=== PATIENT | female | born 1990 | race American Indian/Alaskan Native ===

== ENCOUNTER 2017-01-26 14:55 | Emergency (ER) | payer OTHER ==
[2017-01-26 15:04] VITALS: BP 137/91
--- NOTE | 2017-01-26 16:08 | Emergency Department Report ---
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 Patient denies swelling of throat or tongue, also denies shortness of breath wheezing cough or nausea vomiting. Patient states this never happened before. Patient has no known allergies. Patient states symptoms resolved spontaneously without any treatment. ED Past Medical Hx - Past Medical History Previous Medical History?: No - Surgical History Additional Surgical History: - Social History Smoking Status: Never Smoker Substance Use Type: Alcohol - Medications Home Medications: Home Medications Medication Instructions Recorded Confirmed Last Taken Type EPINEPHrine [Epipen 2-Tamir] 0.3 mg IJ ONCE #2 auto.injct 01/26/17 Unknown Rx Prednisone [predniSONE 10 mg 10 mg PO .TAPER #1 tab.ds.pk 01/26/17 Unknown Rx (6-Day Pack, 21 Tabs)] diphenhydrAMINE [Benadryl CAP] 25 mg PO QHS PRN #20 capsule 01/26/17 Unknown Rx ED Review of Systems ROS: Stated complaint: POSS ALLERGIC REACTION Other details as noted in HPI Constitutional: denies: chills, fever Eyes: denies: eye pain, eye discharge, vision change ENT: denies: ear pain, throat pain Respiratory: denies: cough, shortness of breath, wheezing Cardiovascular: denies: chest pain, palpitations Gastrointestinal: denies: abdominal pain, nausea, vomiting, diarrhea Skin: rash (resolved now) Neurological: denies: headache, weakness, paresthesias Physical Exam - Physical Exam Vital Signs: Vital Signs 01/26/17 14:59 Temperature 97.6 F Pulse Rate 100 H Respiratory 15 Rate Blood Pressure 137/91 O2 Sat by Pulse 100 Oximetry General: Patient's awake alert and oriented eyes are clear extraocular movements intact PERRLA, oropharynx is clear moist oral mucosa, no tracheal deviation, bilateral breath sounds clear to auscultation, no angioedema noted, skin is clear with no urticaria noted. Patient abdomen soft nontender. She's vital signs are stable. Heart rate normal. Reviewed pictures the patient taken of her self appeared to have generalized urticarial reaction mild periorbital swelling. The symptoms completely resolved on physical exam. Patient advised that she is in a be discharged with prednisone and Benadryl and EpiPen pack to carry with her in case this occurs again she begins having signs of anaphylaxis. I discussed with patient with signs of anaphylaxis look like him to self administer EpiPen steroids Benadryl and immediately dialed 911 ED Course Vital Signs 01/26/17 14:59 Temperature 97.6 F Pulse Rate 100 H Respiratory 15 Rate Blood Pressure 137/91 O2 Sat by Pulse 100 Oximetry Critical care attestation.: If time is entered above; I have spent that time in minutes in the direct care of this critically ill patient, excluding procedure time. ED Disposition Clinical Impression: Allergic reaction Disposition: DISCHARGED TO HOME OR SELFCARE Is pt being admited?: No Condition: Stable Instructions: Urticaria (ED), Allergies (ED) Prescriptions: diphenhydrAMINE [Benadryl CAP] 25 mg PO QHS PRN #20 capsule PRN Reason: Allergy Symptoms EPINEPHrine [Epipen 2-Tamir] 0.3 mg IJ ONCE #2 auto.injct Prednisone [predniSONE 10 mg (6-Day Pack, 21 Tabs)] 10 mg PO .TAPER #1 tab.ds.pk Forms: Work/School Release Form(ED)
== END 2017-01-26 16:50 | disposition home or self-care (01) ==
LOC: ED 14:55
DX: T78.40XA Allergy, unspecified, initial encounter (principal); X58.XXXA Exposure to other specified factors, initial encounter
CPT/HCPCS: 99282

== ENCOUNTER 2018-10-26 15:27 | Emergency (ER) | payer OTHER ==
[2018-10-26 15:35] VITALS: BP 118/79
--- NOTE | 2018-10-26 15:37 | Emergency Department Report ---
Blank Doc - Documentation Documentation: This is a 28-year-old female that presents with generalized bodyaches x1 week. Patient seen PCP and urgent care which was given pain meds. Denies feeling any better. Denies any URI symptoms. Denies any other symptoms. This initial assessment diagnostic orders/clinical plan/treatment(s) is/are subject to change based on patient's health status, clinical progression and re- assessment by fellow clinical providers in the ED. Further treatment and workup at subsequent clinical providers discretion. Patient/guardians urged not to elope from ED s their condition may be serious if not clinically assessed and managed. Initial orders include: 1-Patient sent to [facility] for further evaluation and treatment 2-UA 3- Labs
[2018-10-26 16:39] LABS: Basophils % (Auto) 0.3 % (0.0-1.8); Eosinophils # (Auto) 0.3 K/mm3 (0.0-0.4); Eosinophils % (Auto) 6.9 % (0.0-4.3); Hematocrit 37.6 % (30.3-42.9); Hemoglobin 12.4 gm/dl (10.1-14.3); Lymphocytes # (Auto) 1.1 K/mm3 (1.2-5.4); Lymphocytes % (Auto) 27.6 % (13.4-35.0); Mean Corpuscular HGB Conc 33 % (30-34); Mean Corpuscular Volume 93 fl (79-97); Monocytes # (Auto) 0.3 K/mm3 (0.0-0.8); Monocytes % (Auto) 7.4 % (0.0-7.3); Platelet Count 302 K/mm3 (140-440); Red Blood Count 4.04 M/mm3 (3.65-5.03); Red Cell Distribution Width 13.9 % (13.2-15.2)
--- NOTE | 2018-10-26 16:40 | Emergency Department Report ---
<BREEZY SCOTT - Last Filed: 10/26/18 16:39> ED General Adult HPI - General Chief complaint: Pain General Stated complaint: BODY PAIN Time Seen by Provider: 10/26/18 15:30 Source: patient Mode of arrival: Ambulatory Limitations: No Limitations - History of Present Illness Initial comments: Patient is a 28-year-old Georgian female is complaining of diffuse body aches. Patient states the pains are mostly in her biceps and quads. Patient states this pain has been present for approximately 2 weeks and is worse with movement. Pain is 6 out of 10 in severity and aching in nature. Patient states she does do heavy lifting at work and is also sometimes in a hot environment. Patient denies any direct trauma or falls. Severity scale (0 -10): 8 - Related Data Previous Rx's Medication Instructions Recorded Last Taken Type EPINEPHrine [Epipen 2-Tamir] 0.3 mg IJ ONCE #2 auto.injct 01/26/17 Unknown Rx Prednisone [predniSONE 10 mg 10 mg PO .TAPER #1 tab.ds.pk 01/26/17 Unknown Rx (6-Day Pack, 21 Tabs)] diphenhydrAMINE [Benadryl CAP] 25 mg PO QHS PRN #20 capsule 01/26/17 Unknown Rx traMADol [Ultram 50 MG tab] 50 mg PO Q6HR PRN #12 tablet 10/26/18 Unknown Rx Allergies Allergy/AdvReac Type Severity Reaction Status Date / Time No Known Allergies Allergy Unverified 01/26/17 15:04 ED Review of Systems Comment: All other systems reviewed and negative ED Past Medical Hx - Past Medical History Previous Medical History?: No - Surgical History Past Surgical History?: Yes Additional Surgical History: - Social History Smoking Status: Never Smoker Substance Use Type: None - Medications Home Medications: Home Medications Medication Instructions Recorded Confirmed Last Taken Type EPINEPHrine [Epipen 2-Tamir] 0.3 mg IJ ONCE #2 auto.injct 01/26/17 Unknown Rx Prednisone [predniSONE 10 mg 10 mg PO .TAPER #1 tab.ds.pk 01/26/17 Unknown Rx (6-Day Pack, 21 Tabs)] diphenhydrAMINE [Benadryl CAP] 25 mg PO QHS PRN #20 capsule 01/26/17 Unknown Rx traMADol [Ultram 50 MG tab] 50 mg PO Q6HR PRN #12 tablet 10/26/18 Unknown Rx ED Physical Exam - General Limitations: No Limitations General appearance: alert, in no apparent distress - Head Head exam: Present: atraumatic, normocephalic - Eye Eye exam: Present: normal appearance - ENT ENT exam: Present: mucous membranes moist - Neck Neck exam: Present: normal inspection - Respiratory Respiratory exam: Present: normal lung sounds bilaterally. Absent: respiratory distress, wheezes, rales, rhonchi - Cardiovascular Cardiovascular Exam: Present: normal rhythm, tachycardia. Absent: systolic murmur, diastolic murmur, rubs, gallop - GI/Abdominal GI/Abdominal exam: Present: soft, normal bowel sounds. Absent: distended, tenderness, guarding, rebound - Extremities Exam Extremities exam: Present: normal inspection - Back Exam Back exam: Present: normal inspection - Neurological Exam Neurological exam: Present: alert, oriented X3 - Psychiatric Psychiatric exam: Present: normal affect, normal mood - Skin Skin exam: Present: warm, dry, intact, normal color. Absent: rash ED Medical Decision Making - Lab Data Result diagrams: 10/26/18 15:55 ED Disposition Clinical Impression: Generalized body aches Disposition: DC-01 TO HOME OR SELFCARE Condition: Stable Instructions: Musculoskeletal Pain (ED) Additional Instructions: Please follow-up with your primary care physician in 2-3 days. Have them refer you to her under cutting machine operator further testing Take Ultram for pain but these do not drive or operate heavy machinery while taking this medication as it causes drowsiness Referrals: [facility] [Outside] - 2-3 Days Your, primary care physician [Other] - 2-3 Days Forms: Work/School Release Form(ED) <ALISON GARVIN - Last Filed: 10/26/18 17:57> ED General Adult HPI - History of Present Illness Complaint: generalized body ache Onset/Timin -: week(s) Location: left, right (generalized body ache) Radiation: non-radiation Quality: aching Consistency: constant Improves with: none Worsens with: movement Associated Symptoms: other. denies: confusion, chest pain, cough, diaphoresis, fever/chills, headaches, loss of appetite, malaise, nausea/vomiting, rash, seizure, shortness of breath, syncope, weakness Treatments Prior to Arrival: other ([id number] pain medication) ED Review of Systems ROS: Stated complaint: BODY PAIN Other details as noted in HPI Constitutional: denies: chills, fever ENT: denies: ear pain, throat pain, congestion Respiratory: denies: cough, shortness of breath, wheezing Cardiovascular: denies: chest pain, palpitations, dyspnea on exertion, edema, syncope Gastrointestinal: denies: abdominal pain, nausea, vomiting Genitourinary: denies: dysuria, hematuria, abnormal menses Musculoskeletal: arthralgia, myalgia. denies: back pain, joint swelling Skin: denies: rash Neurological: denies: headache, numbness, paresthesias, confusion, abnormal gait, vertigo Psychiatric: denies: anxiety ED Physical Exam - Eye Eye exam: Present: PERRL - ENT ENT exam: Present: normal exam, normal orophraynx - Neck Neck exam: Present: full ROM, other (no C-spine tenderness). Absent: tenderness - Respiratory Respiratory exam: Absent: chest wall tenderness - Extremities Exam Extremities exam: Present: full ROM, normal capillary refill, other (No cce. + 2 pulses in all extremities, no neurovascular compromise). Absent: tenderness, pedal edema, joint swelling, calf tenderness - Back Exam Back exam: Present: full ROM, other (ambulates without any difficulties). Absent: tenderness, muscle spasm, paraspinal tenderness, vertebral tenderness, rash noted - Neurological Exam Neurological exam: Present: normal gait ED Course Vital Signs 10/26/18 15:33 Temperature 98.8 F Pulse Rate 116 H Respiratory 16 Rate Blood Pressure 118/79 O2 Sat by Pulse 98 Oximetry - Reevaluation(s) Reevaluation #1: 10/26/18 17:50 This is a 28-year-old female here reports 2 weeks of generalized body ache. She remained stable throughout ED course. ED Medical Decision Making - Lab Data Result diagrams: 10/26/18 15:55 10/26/18 15:55 Lab Results 10/26/18 10/26/18 10/26/18 Range/Units 15:52 15:55 15:55 WBC 4.1 L (4.5-11.0) K/mm3 RBC 4.04 (3.65-5.03) M/mm3 Hgb 12.4 (10.1-14.3) gm/dl Hct 37.6 (30.3-42.9) % MCV 93 (79-97) fl MCH 31 (28-32) pg MCHC 33 (30-34) % RDW 13.9 (13.2-15.2) % Plt Count 302 (140-440) K/mm3 Lymph % (Auto) 27.6 (13.4-35.0) % [place] % (Auto) 7.4 H (0.0-7.3) % Eos % (Auto) 6.9 H (0.0-4.3) % Baso % (Auto) 0.3 (0.0-1.8) % Lymph # 1.1 L (1.2-5.4) K/mm3 Schley # 0.3 (0.0-0.8) K/mm3 Eos # 0.3 (0.0-0.4) K/mm3 Baso # 0.0 (0.0-0.1) K/mm3 Seg Neutrophils % 57.8 (40.0-70.0) % Seg Neutrophils # 2.4 (1.8-7.7) K/mm3 Sodium 138 (137-145) mmol/L Potassium 4.0 (3.6-5.0) mmol/L Chloride 100.5 (98-107) mmol/L Carbon Dioxide 30 (22-30) mmol/L Anion Gap 12 mmol/L BUN 11 (7-17) mg/dL Creatinine 0.5 L (0.7-1.2) mg/dL Estimated GFR > 60 ml/min BUN/Creatinine Ratio 22 % Glucose 74 (65-100) mg/dL Calcium 8.5 (8.4-10.2) mg/dL Total Creatine Kinase 58 (30-135) units/L Urine Color Yellow (Yellow) Urine Turbidity Clear (Clear) Urine pH 7.0 (5.0-7.0) Ur Specific [place] 1.018 (1.003-1.030) Urine Protein <15 mg/dl (Negative) mg/dL Urine Glucose (UA) Neg (Negative) mg/dL Urine Ketones Neg (Negative) mg/dL Urine Blood Neg (Negative) Urine Nitrite Neg (Negative) Ur Reducing Substances Not Reportable Urine Bilirubin Neg (Negative) Urine Ictotest Not Reportable Urine Urobilinogen < 2.0 (<2.0) mg/dL Ur Leukocyte Esterase Neg (Negative) Urine WBC (Auto) 1.0 (0.0-6.0) /HPF Urine RBC (Auto) 1.0 (0.0-6.0) /HPF U Epithel Cells (Auto) 1.0 (0-13.0) /HPF Urine Mucus Few /HPF Urine HCG, Qual Negative (Negative) - Medical Decision Making This is a 28-year-old female here for generalized body ache 2 weeks. She works in the post [employer]. She had CBC, BMP and urinalysis along with test done. Lab results within normal level and test normal. Her CK is within normal limits. I discussed with patient her findings and told her that she is to follow up with her under cutting machine operator that she is having aching in her joints and she voiced understanding. She does have a primary care physician. I discussed with her she needs to follow up with primary care physician in 2-3 days and he can refer her to under cutting machine operator and she voiced understanding. Patient discharged home in stable condition with prescription for Ultram and to increase her fluid intake. Her vital signs are stable and she is afebrile and in no acute distress Critical care attestation.: If time is entered above; I have spent that time in minutes in the direct care of this critically ill patient, excluding procedure time. ED Disposition Is pt being admited?: No Does the pt Need Aspirin: No
[2018-10-26 17:20] LABS: BUN/Creatinine Ratio 22; Blood Urea Nitrogen 11 mg/dL (7-17); Calcium 8.5 mg/dL (8.4-10.2); Hemolysis Index 6
[2018-10-26 17:26] LABS: HCG Qualitative,Urine Negative (Negative)
[2018-10-26 17:28] LABS: Bilirubin,Urine NEG (Negative); Color,Urine Yellow (Yellow)
[2018-10-26 17:29] LABS: Blood,Urine NEG (Negative); Mucus,Urine FEW /HPF; Protein,Urine <15 mg/dL mg/dL (Negative); Urobilinogen,Urine < 2.0 mg/dL (<2.0)
== END 2018-10-26 18:05 | disposition home or self-care (01) ==
LOC: ED 15:27
DX: M79.10 Myalgia, unspecified site (principal)
CPT/HCPCS: 36415; 80048; 81001; 81025; 82550; 85025; 99283

== ENCOUNTER 2018-11-13 12:39 | Outpatient (CLI) | payer OTHER ==
--- NOTE | 2018-11-13 14:35 | Ultrasound Report ---
Bilateral axillary ultrasound: Bilaterally enlarged lymph nodes palpated by her physician. Imaging of both axillary regions demonstrated approximately 6 lymph nodes in each axilla. The smallest nodes were approximately one centimeters in size. The 2 largest lymph nodes on the right measure 2.5 cm. On the left the 2 largest measure 2.8 and 2.3 cm respectively. All of the enlarged lymph nodes appear to be abnormal with markedly thickened cortices but no focal mass and no significant lobulation. Impression: Nonspecific adenopathy.
== END 2018-11-13 12:40 | disposition home or self-care (01) ==
LOC: US 12:39
PROVIDERS: ATTEND Surgery
DX: I88.8 Other nonspecific lymphadenitis (principal)

== ENCOUNTER 2018-11-27 07:28 | Inpatient (IN) | payer OTHER ==
[2018-11-27] MEDS ORDERED: ANCEF/STERILE WATER 2 GM/20 ML 2 GM/20 ML SYRINGE IV NR (08:00)
--- NOTE | 2018-11-27 08:33 | Anesthesia Consultation ---
Anesthesia Consult and Med Hx Date of service: 11/27/18 - Airway Anesthetic Teeth Evaluation: Good ROM Head & Neck: Adequate Mental/Hyoid Distance: Adequate Mallampati Class: Class II Intubation Access Assessment: Probably Good - Pulmonary Exam CTA: Yes - Cardiac Exam Cardiac Exam: RRR - Pre-Operative Health Status ASA Pre-Surgery Classification: ASA3 Proposed Anesthetic Plan: General - Pulmonary Hx Smoking: No Hx Asthma: No Hx Respiratory Symptoms: No - Cardiovascular System Hx Hypertension: No Hx Heart Attack/AMI: No Hx Percutaneous Transluminal Coronary Angioplasty (PTCA): No Hx Cardia Arrhythmia: No - Central Nervous System Hx Seizures: No CVA: No Hx Back Pain: Yes Hx Psychiatric Problems: No - Gastrointestinal Hx Gastroesophageal Reflux Disease: No - Endocrine Hx Renal Disease: No Hx Liver Disease: No Hx Insulin Dependent Diabetes: No Hx Non-Insulin Dependent Diabetes: No Hx Thyroid Disease: No - Other Systems Hx Obesity: No - Additional Comments Anesthesia Medical History Comments: Hx recent diagnosis of SLE on prednisone 20mg qAM. Per patient, no renal, lung, or vascular involvement. Will give usual morning dose in POHA. Will consider stress dose steroids pending extent of planned procedure.
[2018-11-27] MEDS ORDERED: DILAUDID IV PRN ×2 (08:34→11:08)
--- NOTE | 2018-11-27 08:34 | Anesthesia Day of Surgery ---
Anesthesia Day of Surgery - Day of Surgery Patient Examined: Yes Patient H&P Reviewed: Yes Patient is NPO: Yes
[2018-11-27] MEDS ORDERED: LACTATED RINGERS 1,000 ML IV SCH (09:00)
[2018-11-27] MEDS ORDERED: VERSED IV NR (09:00)
[2018-11-27] MEDS ORDERED: DELTASONE PO NR (09:00)
[2018-11-27] MEDS ORDERED: PERCOCET 5/325 PO PRN (11:09)
[2018-11-27] MEDS ORDERED: TYLENOL PO PRN (11:15)
[2018-11-27] MEDS ORDERED: VANCOMYCIN PHARMACY TO DOSE IV SCH (12:00)
[2018-11-27] MEDS: NACL 0.9% 1000 ML 1,000 ML IV SCH (12:59)
[2018-11-27] MEDS ORDERED: VANCOMYCIN/NS 1 GM/250 ML 1 GM/250 ML BAG IV ONE (13:00)
--- NOTE | 2018-11-27 13:08 | Event Note ---
Date: 11/27/18 Pt presented for elective excisional lymph node biopsy due to nonspecific lymphadenopathy. The patient was febrile to 102 and tachycardic upon assessment by preop nurse. Per family patient has been increasingly sleepy, febrile over the last one week and not eating or drinking well. This is a change since her preop visit with me in my office. She is not on any antibiotics. They do not know why she is not feeling well. Due to the above circumstances, case will be cancelled for today and patient will be admitted to hospitalist service for further evaluation and w/u of fever. Discussed with Dr. Rdz. I spoke with Dr. Armijo (patient's supervisor insulation) to alert him of the change in plan and he will be available to see the patient.
[2018-11-27] MEDS: ZOSYN/NS 4.5GM/100ML 4.5 GM/100 ML VIAL IV SCH ×2 (13:09→23:00)
[2018-11-27 13:30] LABS: Erythrocyte Sedimentation Rate 34 mm/Hr (0-20)
[2018-11-27 13:38] LABS: Hematocrit 33.9 % (30.3-42.9); Hemoglobin 11.4 gm/dl (10.1-14.3); Mean Corpuscular Volume 92 fl (79-97); Red Blood Count 3.69 M/mm3 (3.65-5.03)
[2018-11-27 13:39] LABS: Mean Corpuscular HGB Conc 34 % (30-34); Platelet Count 320 K/mm3 (140-440); Red Cell Distribution Width 15.3 % (13.2-15.2)
[2018-11-27 13:48] LABS: Alanine Aminotransferase 59 units/L (7-56); Albumin 2.3 g/dL (3.9-5); BUN/Creatinine Ratio 28; Blood Urea Nitrogen 17 mg/dL (7-17); Calcium 7.9 mg/dL (8.4-10.2); Hemolysis Index 8
[2018-11-27 15:43] LABS: Band Neutrophils # (Manual) 0.6 K/mm3; Basophils % (Manual) 0 % (0.0-1.8); Eosinophils % (Manual) 0 % (0.0-4.3); Total Cells Counted 100
[2018-11-27 15:44] LABS: Ovalocytes Few; Platelet Estimate Consistent w Auto; Poikilocytosis Few
--- NOTE | 2018-11-27 16:43 | XRay Report ---
PROCEDURE: XR CHEST ROUTINE 2V TECHNIQUE: PA and lateral views of the chest. HISTORY: FEVER COMPARISONS: None FINDINGS: Lines, tubes, and devices: N/A Lungs and pleura: Trachea is normal in position. Lungs are clear of infiltrate, pleural effusion, vas cular congestion, or pneumothorax. Cardiomediastinal silhouette: Cardiac and mediastinal silhouettes are unremarkable. Other: Bony structures are intact. IMPRESSION: No acute cardiopulmonary process seen. . This document is electronically signed by Anjelica Feng MD., November 27 2018 04:41:08 PM ET
--- NOTE | 2018-11-27 18:00 | History and Physical Report ---
History of Present Illness Date of examination: 11/27/18 Date of admission: 11/27/18 10:35 Medications and Allergies Allergies Allergy/AdvReac Type Severity Reaction Status Date / Time meloxicam AdvReac 'POSSIBLE'- Verified 11/21/18 10:45 HANDS SWELLING Home Medications Medication Instructions Recorded Confirmed Last Taken Type Ibuprofen 600 mg PO Q6H PRN 11/21/18 11/27/18 11/26/18 15:00 History predniSONE [Deltasone] 20 mg PO DAILY 11/21/18 11/27/18 11/26/18 15:00 History Active Meds: Active Medications Acetaminophen (Tylenol) 650 mg PO Q4H PRN PRN Reason: Fever >101 Last Admin: 11/27/18 12:46 Dose: 650 mg Documented by: Hydromorphone HCl (Dilaudid) 0.5 mg IV Q10MIN PRN PRN Reason: Pain , Severe (7-10) Stop: 11/27/18 20:00 Hydromorphone HCl (Dilaudid) 0.5 mg IV Q3H PRN PRN Reason: Pain , Severe (7-10) Lactated Ringer's (Lactated Ringers) 1,000 mls @ 100 mls/hr IV DIRECT ANIYAH Sodium Chloride (Nacl 0.9% 1000 Ml) 1,000 mls @ 0 mls/hr IV ONCE ANIYAH Stop: 11/28/18 12:01 Last Admin: 11/27/18 12:59 Dose: 100 mls/hr Documented by: Piperacillin Sod/Tazobactam Sod (Zosyn/Ns 4.5gm/100ml) 4.5 gm in 100 mls @ 200 mls/hr IV Q8H ANIYAH; Protocol Last Admin: 11/27/18 13:09 Dose: 200 mls/hr Documented by: Vancomycin HCl 750 mg/ Sodium (Chloride) 265 mls @ 132.5 mls/hr IV Q12H ANIYAH Midazolam HCl (Versed) 2 mg IV PREOP NR Stop: 11/27/18 23:59 Oxycodone/Acetaminophen (Percocet 5/325) 1 tab PO Q4H PRN PRN Reason: Pain, Moderate (4-6) Exam - Constitutional Vitals: Temp Pulse Resp BP Pulse Ox 102.2 F H 98 H 18 116/74 96 11/27/18 12:09 03/28/19 12:09 11/27/18 12:09 11/27/18 12:09 11/27/18 12:09 Results - Labs CBC & Chem 7: 11/27/18 11:33 11/27/18 11:33 Labs: Laboratory Last Values WBC 6.4 K/mm3 (4.5-11.0) 11/27/18 11:33 RBC 3.69 M/mm3 (3.65-5.03) 11/27/18 11:33 Hgb 11.4 gm/dl (10.1-14.3) 11/27/18 11:33 Hct 33.9 % (30.3-42.9) 11/27/18 11:33 MCV 92 fl (79-97) 11/27/18 11:33 MCH 31 pg (28-32) 11/27/18 11:33 MCHC 34 % (30-34) 11/27/18 11:33 RDW 15.3 % (13.2-15.2) H 11/27/18 11:33 Plt Count 320 K/mm3 (140-440) 11/27/18 11:33 Lymph % (Auto) Assistant Merchandiser 11/27/18 11:33 [place] % (Auto) Assistant Merchandiser 11/27/18 11:33 Eos % (Auto) Assistant Merchandiser 11/27/18 11:33 Baso % (Auto) Assistant Merchandiser 11/27/18 11:33 Lymph # Assistant Merchandiser 11/27/18 11:33 [place] # Assistant Merchandiser 11/27/18 11:33 Eos # Assistant Merchandiser 11/27/18 11:33 Baso # Assistant Merchandiser 11/27/18 11:33 Add Manual Diff Complete 11/27/18 11:33 Total Counted 100 11/27/18 11:33 Seg Neutrophils % Assistant Merchandiser 11/27/18 11:33 Seg Neuts % (Manual) 81.0 % (40.0-70.0) H 11/27/18 11:33 Band Neutrophils % 9.0 % 11/27/18 11:33 Lymphocytes % (Manual) 6.0 % (13.4-35.0) L 11/27/18 11:33 Reactive Lymphs % (Man) 0 % 11/27/18 11:33 Monocytes % (Manual) 2.0 % (0.0-7.3) 11/27/18 11:33 Eosinophils % (Manual) 0 % (0.0-4.3) 11/27/18 11:33 Basophils % (Manual) 0 % (0.0-1.8) 11/27/18 11:33 Metamyelocytes % 2.0 % 11/27/18 11:33 Myelocytes % 0 % 11/27/18 11:33 Promyelocytes % 0 % 11/27/18 11:33 Blast Cells % 0 % 11/27/18 11:33 Nucleated RBC % Not Reportable 11/27/18 11:33 Seg Neutrophils # Assistant Merchandiser 11/27/18 11:33 Seg Neutrophils # Man 5.2 K/mm3 (1.8-7.7) 11/27/18 11:33 Band Neutrophils # 0.6 K/mm3 11/27/18 11:33 Lymphocytes # (Manual) 0.4 K/mm3 (1.2-5.4) L 11/27/18 11:33 Abs React Lymphs (Man) 0.0 K/mm3 11/27/18 11:33 Monocytes # (Manual) 0.1 K/mm3 (0.0-0.8) 11/27/18 11:33 Eosinophils # (Manual) 0.0 K/mm3 (0.0-0.4) 11/27/18 11:33 Basophils # (Manual) 0.0 K/mm3 (0.0-0.1) 11/27/18 11:33 Metamyelocytes # 0.1 K/mm3 11/27/18 11:33 Myelocytes # 0.0 K/mm3 11/27/18 11:33 Promyelocytes # 0.0 K/mm3 11/27/18 11:33 Blast Cells # 0.0 K/mm3 11/27/18 11:33 WBC Morphology Not Reportable 11/27/18 11:33 Hypersegmented Neuts Not Reportable 11/27/18 11:33 Hyposegmented Neuts Not Reportable 11/27/18 11:33 Hypogranular Neuts Not Reportable 11/27/18 11:33 Smudge Cells Not Reportable 11/27/18 11:33 Toxic Granulation Not Reportable 11/27/18 11:33 Toxic Vacuolation Not Reportable 11/27/18 11:33 Dohle Bodies Not Reportable 11/27/18 11:33 Pelger-Huet Anomaly Not Reportable 11/27/18 11:33 Padma Rods Not Reportable 11/27/18 11:33 Platelet Estimate Consistent w auto 11/27/18 11:33 Clumped Platelets Not Reportable 11/27/18 11:33 Plt Clumps, EDTA Not Reportable 11/27/18 11:33 Large Platelets Not Reportable 11/27/18 11:33 Giant Platelets Not Reportable 11/27/18 11:33 Platelet Satelliting Not Reportable 11/27/18 11:33 Plt Morphology Comment Not Reportable 11/27/18 11:33 RBC Morphology Not Reportable 11/27/18 11:33 Dimorphic RBCs Not Reportable 11/27/18 11:33 Polychromasia Not Reportable 11/27/18 11:33 Hypochromasia Not Reportable 11/27/18 11:33 Poikilocytosis Few 11/27/18 11:33 Anisocytosis Not Reportable 11/27/18 11:33 Microcytosis Not Reportable 11/27/18 11:33 Macrocytosis Not Reportable 11/27/18 11:33 Spherocytes Not Reportable 11/27/18 11:33 Pappenheimer Bodies Not Reportable 11/27/18 11:33 Sickle Cells Not Reportable 11/27/18 11:33 Target Cells Not Reportable 11/27/18 11:33 Tear Drop Cells Not Reportable 11/27/18 11:33 Ovalocytes Few 11/27/18 11:33 Helmet Cells Not Reportable 11/27/18 11:33 Gibson-[place] Bodies Not Reportable 11/27/18 11:33 [place] Rings Not Reportable 11/27/18 11:33 Manti Cells Not Reportable 11/27/18 11:33 Bite Cells Not Reportable 11/27/18 11:33 Crenated Cell Not Reportable 11/27/18 11:33 Elliptocytes Not Reportable 11/27/18 11:33 Acanthocytes (Spur) Not Reportable 11/27/18 11:33 Rouleaux Not Reportable 11/27/18 11:33 Hemoglobin C Crystals Not Reportable 11/27/18 11:33 Schistocytes Not Reportable 11/27/18 11:33 Malaria parasites Not Reportable 11/27/18 11:33 ESR 34 mm/Hr (0-20) 11/27/18 11:33 Marbin Bodies Not Reportable 11/27/18 11:33 Hem Pathologist Commnt No 11/27/18 11:33 Sodium 131 mmol/L (137-145) L 11/27/18 11:33 Potassium 4.0 mmol/L (3.6-5.0) 11/27/18 11:33 Chloride 95.0 mmol/L (98-107) L 11/27/18 11:33 Carbon Dioxide 26 mmol/L (22-30) 11/27/18 11:33 Anion Gap 14 mmol/L 11/27/18 11:33 BUN 17 mg/dL (7-17) 11/27/18 11:33 Creatinine 0.6 mg/dL (0.7-1.2) L 11/27/18 11:33 Estimated GFR > 60 ml/min 11/27/18 11:33 BUN/Creatinine Ratio 28 % 11/27/18 11:33 Glucose 103 mg/dL (65-100) H 11/27/18 11:33 Calcium 7.9 mg/dL (8.4-10.2) L 11/27/18 11:33 Total Bilirubin 0.50 mg/dL (0.1-1.2) 11/27/18 11:33 AST 145 units/L (5-40) H 11/27/18 11:33 ALT 59 units/L (7-56) H 11/27/18 11:33 Alkaline Phosphatase 35 units/L (35-129) 11/27/18 11:33 Total Protein 5.9 g/dL (6.3-8.2) L 11/27/18 11:33 Albumin 2.3 g/dL (3.9-5) L 11/27/18 11:33 Albumin/Globulin Ratio 0.6 % 11/27/18 11:33 TSH 0.281 mlU/mL (0.270-4.200) 11/27/18 11:33
[2018-11-27] MEDS ORDERED: SODIUM CHLORIDE FLUSH SYRINGE 10 ML IV PRN (18:15)
[2018-11-27] MEDS ORDERED: REGLAN IV PRN (18:15)
[2018-11-27 19:27] LABS: Basophils % (Auto) 0.4 % (0.0-1.8); Hematocrit 32.8 % (30.3-42.9); Lymphocytes # (Auto) 0.9 K/mm3 (1.2-5.4); Mean Corpuscular HGB Conc 34 % (30-34); Mean Corpuscular Volume 92 fl (79-97); Monocytes # (Auto) 0.1 K/mm3 (0.0-0.8); Monocytes % (Auto) 2.9 % (0.0-7.3); Platelet Count 293 K/mm3 (140-440); Red Blood Count 3.57 M/mm3 (3.65-5.03); Red Cell Distribution Width 15.1 % (13.2-15.2)
[2018-11-27 19:48] LABS: Alanine Aminotransferase 55 units/L (7-56); Albumin 2.2 g/dL (3.9-5); BUN/Creatinine Ratio 27; Blood Urea Nitrogen 16 mg/dL (7-17); Calcium 7.4 mg/dL (8.4-10.2); Hemolysis Index 18
[2018-11-27] MEDS: SODIUM CHLORIDE FLUSH SYRINGE 10 ML IV SCH (22:30)
[2018-11-27] MEDS: PEPCID PO SCH (22:30)
[2018-11-28] MEDS: NACL 0.9% 1000 ML 1,000 ML IV SCH (01:38)
[2018-11-28] MEDS: VANCOMYCIN 750 MG in NACL 0.9% 250ML 250 ML IV SCH ×2 (01:48→15:07)
[2018-11-28] MEDS: ZOSYN/NS 4.5GM/100ML 4.5 GM/100 ML VIAL IV SCH ×2 (05:20→14:20)
--- NOTE | 2018-11-28 05:23 | Hem/Onc Progress Note ---
Assessment and Plan B/l axilla lymphadenopathy. Etiology is unclear at this time. This could be a viral etiology or an immune cause. neoplasm is a differential. The patient had abnormal myelocyte; however, by the time I had evaluated her 10/22/2018 smear and flow cytometry were normal. This could have been a transient phenomenon. Abnormal LFTs. We will follow the trend. History of fever, being admitted for evaluation. 11/28 d/w dr prado - ID consult for fever CT CAP planned LN bx planned - once no fever - Patient Problems (1) Lymphadenopathy Current Visit: Yes Status: Acute Subjective Date of service: 11/28/18 Objective - Constitutional Vitals: Last Vital Signs Temp 98.2 F 11/27/18 23:10 Pulse 65 11/27/18 23:10 Resp 18 11/27/18 23:10 BP 96/56 11/27/18 23:10 Pulse Ox 90 11/27/18 23:10 Pain Intensity (0-10): denies any pain General appearance: no acute distress Performance status: 2- selfcare, ambulatory - EENT Eyes: EOM intact ENT: clear oral mucosa Lymph node exam: bilateral axillary - Neck Neck: normal ROM - Respiratory Respiratory effort: Positive: normal Respiratory: bilateral: CTA - Cardiovascular Heart Sounds: Present: S1 & S2 Extremities: No edema - Gastrointestinal General gastrointestinal: Present: soft, non-tender Rectal Exam: deferred - Genitourinary Female genitourinary: Present: deferred - Integumentary Integumentary: warm - Musculoskeletal Musculoskeletal: strength equal bilaterally - Neurologic Neurologic: moves all extremities - Psychiatric Psychiatric: appropriate mood/affect - Labs Lab Results: Laboratory Results - last 24 hr 11/27/18 11/27/18 11/27/18 11:33 11:33 11:33 WBC 6.4 RBC 3.69 Hgb 11.4 Hct 33.9 MCV 92 MCH 31 MCHC 34 RDW 15.3 H Plt Count 320 Lymph % (Auto) Camera Prototyping Engineer [place] % (Auto) Camera Prototyping Engineer Eos % (Auto) Camera Prototyping Engineer Baso % (Auto) Camera Prototyping Engineer Lymph # Camera Prototyping Engineer [place] # Camera Prototyping Engineer Eos # Camera Prototyping Engineer Baso # Camera Prototyping Engineer Add Manual Diff Complete Total Counted 100 Seg Neutrophils % Camera Prototyping Engineer Seg Neuts % (Manual) 81.0 H Band Neutrophils % 9.0 Lymphocytes % (Manual) 6.0 L Reactive Lymphs % (Man) 0 Monocytes % (Manual) 2.0 Eosinophils % (Manual) 0 Basophils % (Manual) 0 Metamyelocytes % 2.0 Myelocytes % 0 Promyelocytes % 0 Blast Cells % 0 Nucleated RBC % Not Reportable Seg Neutrophils # Camera Prototyping Engineer Seg Neutrophils # Man 5.2 Band Neutrophils # 0.6 Lymphocytes # (Manual) 0.4 L Abs React Lymphs (Man) 0.0 Monocytes # (Manual) 0.1 Eosinophils # (Manual) 0.0 Basophils # (Manual) 0.0 Metamyelocytes # 0.1 Myelocytes # 0.0 Promyelocytes # 0.0 Blast Cells # 0.0 WBC Morphology Not Reportable Hypersegmented Neuts Not Reportable Hyposegmented Neuts Not Reportable Hypogranular Neuts Not Reportable Smudge Cells Not Reportable Toxic Granulation Not Reportable Toxic Vacuolation Not Reportable Dohle Bodies Not Reportable Pelger-Huet Anomaly Not Reportable Padma Rods Not Reportable Platelet Estimate Consistent w auto Clumped Platelets Not Reportable Plt Clumps, EDTA Not Reportable Large Platelets Not Reportable Giant Platelets Not Reportable Platelet Satelliting Not Reportable Plt Morphology Comment Not Reportable RBC Morphology Not Reportable Dimorphic RBCs Not Reportable Polychromasia Not Reportable Hypochromasia Not Reportable Poikilocytosis Few Anisocytosis Not Reportable Microcytosis Not Reportable Macrocytosis Not Reportable Spherocytes Not Reportable Pappenheimer Bodies Not Reportable Sickle Cells Not Reportable Target Cells Not Reportable Tear Drop Cells Not Reportable Ovalocytes Few Helmet Cells Not Reportable Gibson-[place] Bodies Not Reportable [place] Rings Not Reportable Baldev Cells Not Reportable Bite Cells Not Reportable Crenated Cell Not Reportable Elliptocytes Not Reportable Acanthocytes (Spur) Not Reportable Rouleaux Not Reportable Hemoglobin C Crystals Not Reportable Schistocytes Not Reportable Malaria parasites Not Reportable ESR 34 Marbin Bodies Not Reportable Hem Pathologist Commnt No Sodium 131 L Potassium 4.0 Chloride 95.0 L Carbon Dioxide 26 Anion Gap 14 BUN 17 Creatinine 0.6 L Estimated GFR > 60 BUN/Creatinine Ratio 28 Glucose 103 H Hemoglobin A1c Calcium 7.9 L Total Bilirubin 0.50 AST 145 H ALT 59 H Alkaline Phosphatase 35 Total Protein 5.9 L Albumin 2.3 L Albumin/Globulin Ratio 0.6 TSH 0.281 11/27/18 11/27/18 11/27/18 19:10 19:10 19:10 WBC 5.1 RBC 3.57 L Hgb 11.0 Hct 32.8 MCV 92 MCH 31 MCHC 34 RDW 15.1 Plt Count 293 Lymph % (Auto) 18.0 [place] % (Auto) 2.9 Eos % (Auto) 0.0 Baso % (Auto) 0.4 Lymph # 0.9 L [place] # 0.1 Eos # 0.0 Baso # 0.0 Add Manual Diff Total Counted Seg Neutrophils % 78.7 H Seg Neuts % (Manual) Band Neutrophils % Lymphocytes % (Manual) Reactive Lymphs % (Man) Monocytes % (Manual) Eosinophils % (Manual) Basophils % (Manual) Metamyelocytes % Myelocytes % Promyelocytes % Blast Cells % Nucleated RBC % Seg Neutrophils # 4.0 Seg Neutrophils # Man Band Neutrophils # Lymphocytes # (Manual) Abs React Lymphs (Man) Monocytes # (Manual) Eosinophils # (Manual) Basophils # (Manual) Metamyelocytes # Myelocytes # Promyelocytes # Blast Cells # WBC Morphology Hypersegmented Neuts Hyposegmented Neuts Hypogranular Neuts Smudge Cells Toxic Granulation Toxic Vacuolation Dohle Bodies Pelger-Huet Anomaly Padma Rods Platelet Estimate Clumped Platelets Plt Clumps, EDTA Large Platelets Giant Platelets Platelet Satelliting Plt Morphology Comment RBC Morphology Dimorphic RBCs Polychromasia Hypochromasia Poikilocytosis Anisocytosis Microcytosis Macrocytosis Spherocytes Pappenheimer Bodies Sickle Cells Target Cells Tear Drop Cells Ovalocytes Helmet Cells Gibson-[place] Bodies [place] Rings Baldev Cells Bite Cells Crenated Cell Elliptocytes Acanthocytes (Spur) Rouleaux Hemoglobin C Crystals Schistocytes Malaria parasites ESR Marbin Bodies Hem Pathologist Commnt Sodium 133 L Potassium 3.8 Chloride 100.5 Carbon Dioxide 25 Anion Gap 11 BUN 16 Creatinine 0.6 L Estimated GFR > 60 BUN/Creatinine Ratio 27 Glucose 187 H Hemoglobin A1c 6.0 Calcium 7.4 L Total Bilirubin 0.40 AST 137 H ALT 55 Alkaline Phosphatase 34 L Total Protein 5.7 L Albumin 2.2 L Albumin/Globulin Ratio 0.6 TSH Medications & Allergies - Medications Allergies/Adverse Reactions: Allergies meloxicam Adverse Reaction (Verified 11/21/18 10:45) 'POSSIBLE'- HANDS SWELLING Home Medications: Home Medications Medication Instructions Recorded Confirmed Last Taken Type Ibuprofen 600 mg PO Q6H PRN 11/21/18 11/27/18 11/26/18 15:00 History RX: predniSONE [Deltasone] 20 mg PO DAILY 11/21/18 11/27/18 11/26/18 15:00 History Active Medications: Generic Name Dose Route Start Last Admin Trade Name Freq PRN Reason Stop Dose Admin Acetaminophen 650 mg 11/27/18 18:15 Tylenol PO Q4H PRN Pain MILD(1-3)/Fever >100.5/REDDY Famotidine 20 mg 11/27/18 22:00 11/27/18 22:30 Pepcid PO 20 mg BID ANIYAH Administration Hydromorphone HCl 0.5 mg 11/27/18 11:08 Dilaudid IV Q3H PRN Pain , Severe (7-10) Lactated Ringer's 1,000 mls @ 100 mls/hr 11/27/18 09:00 Lactated Ringers IV DIRECT ANIYAH Sodium Chloride 1,000 mls @ 0 mls/hr 11/27/18 12:00 11/28/18 01:38 Nacl 0.9% 1000 Ml IV 11/28/18 12:01 100 mls/hr ONCE ANIYAH Administration As Directed Piperacillin Sod/Tazobactam Sod 4.5 gm in 100 mls @ 200 mls/hr 11/27/18 14:00 11/28/18 05:20 Zosyn/Ns 4.5gm/100ml IV 200 mls/hr Q8H ANIYAH Administration Protocol Vancomycin HCl 750 mg/ Sodium 265 mls @ 132.5 mls/hr 11/28/18 02:00 11/28/18 01:48 Chloride IV 132.5 mls/hr Q12H ANIYAH Administration Ibuprofen 600 mg 11/27/18 18:27 Motrin PO Q6H PRN Inflammation Metoclopramide HCl 10 mg 11/27/18 18:15 Reglan IV Q6H PRN Nausea And Vomiting Ondansetron HCl 4 mg 11/27/18 18:15 Zofran IV Q8H PRN Nausea And Vomiting Oxycodone/Acetaminophen 1 tab 11/27/18 11:09 Percocet 5/325 PO Q4H PRN Pain, Moderate (4-6) Sodium Chloride 10 ml 11/27/18 22:00 11/27/18 22:30 Sodium Chloride Flush Syringe 10 Ml IV 10 ml BID ANIYAH Administration Sodium Chloride 10 ml 11/27/18 18:15 Sodium Chloride Flush Syringe 10 Ml IV PRN PRN LINE FLUSH
--- NOTE | 2018-11-28 05:39 | Event Note ---
Date: 11/27/18 [id number]
[2018-11-28] MEDS: IBUPROFEN PO PRN ×2 (05:45→22:16)
--- NOTE | 2018-11-28 06:01 | Event Note ---
Date: 11/27/18 See dictated H/p in reports Fever SIRS Bilateral axillary Lymphadenopathy and cervical adenopathy Transaminitis
--- NOTE | 2018-11-28 07:04 | History and Physical Report ---
CHIEF COMPLAINT: 1. Fever. 2. Lymphadenopathy. HISTORY OF PRESENT ILLNESS: A 28-year-old female with no significant past medical history except for bilateral axillary lymphadenopathy and cervical lymphadenopathy. Sent from the preop because of fever and tachycardia. The patient has seen hematology/oncologist, Dr. Armijo for bilateral lymphadenopathy in the axilla and the cervical region. The patient is not able to tell me why she went to hematology directly without being referred. The patient was scheduled for lymph node biopsy to rule out lymphoma. The lymphadenopathy was noticed about 6 weeks ago. The patient has been having fever and poor p.o. intake for the last one week and poor appetite, fever off and on for the last one week. No cough, no dysuria. No abdominal pain. No lightheadedness. No chest pain. PAST MEDICAL HISTORY: No significant past medical history. PAST SURGICAL HISTORY: None. FAMILY HISTORY: Hypertension. SOCIAL HISTORY: Does not smoke. No alcohol, no recreational drugs. REVIEW OF SYSTEMS: Significant for fever, feeling weak and poor appetite. No recent weight loss. PHYSICAL EXAMINATION: GENERAL: Young female, cooperative during examination. VITAL SIGNS: Temperature 100.7, pulse is 98, respiratory rate is 18, sats are 96%, blood pressure 116/74. HEENT: Unremarkable. Pupils equal and reactive. NECK: Supple. The lymph nodes are palpable bilaterally, small, discrete. CHEST: Also bilateral axillary lymph nodes palpable, small, multiple. Good air entry. No rhonchi, no rales. CARDIOVASCULAR SYSTEM: S1, S2 heard. No gallop, no murmur, no rub. Apical impulse in left fifth intercostal space in midclavicular line. ABDOMEN: Soft and benign. No hepatosplenomegaly. No guarding, no rigidity. Hernial orifices are normal. EXTREMITIES: Good pedal pulses. No pedal edema. CENTRAL NERVOUS SYSTEM: Alert and oriented x 4, nonfocal exam. SKIN: Normal. LABORATORY DATA: Significant for normal hemoglobin and hematocrit 11.4 and 33.9, white count is 6400, platelet count is 320,000. Chemistry significant for sodium of 131, normal potassium of 4.0, chloride of 95, BUN and creatinine is 17 and 0.6, glucose of 103. Hemoglobin A1c of 6.0, calcium is 7.9. AST of 145, ALT of 59, total protein 5.9, albumin of 2.3. ASSESSMENT AND PLAN: 1. Systemic inflammatory response syndrome (SIRS). The patient started on IV Zosyn and IV vancomycin, pending blood cultures. White count is not elevated. Fever may be due to possible lymphoma. Lymphoma is the differential diagnosis. 2. Cervical and axillary lymphadenopathy. The patient to get biopsy to rule out lymphoma. Hodgkin's versus non-Hodgkin's. 3. Hyponatremia. IV fluids for now. 4. Hyperglycemia. No history of diabetes. A1c 6.0. Will give insulin coverage. May be patient can be started on metformin. 5. Transaminitis, rule out hepatitis. Etiology unclear. Severe malnutrition. Albumin is 2.3. Dietitian consult. 6. Deep venous thrombosis prophylaxis, Lovenox 40 mg subcutaneous daily. In summary, the patient has SIRS, bilateral axillary and cervical lymphadenopathy, hyponatremia, transaminitis and low albumin of 2.3. JOB# [id number] VSPeyton/BECKY NICHOLE
[2018-11-28 07:09] LABS: Hepatitis B Surface Antigen Non-Reactive (Negative); Hepatitis C Virus Antibody Non-Reactive (NonReactive)
[2018-11-28] MEDS: SODIUM CHLORIDE FLUSH SYRINGE 10 ML IV SCH ×2 (10:00→22:19)
[2018-11-28] MEDS: HumaLOG SUB-Q SCH ×3 (11:30→22:10)
[2018-11-28] MEDS ORDERED: D50W (25GM) Syringe IV ONE (11:41)
[2018-11-28 13:49] LABS: Bilirubin,Urine NEG (Negative); Blood,Urine NEG (Negative); Color,Urine Amber (Yellow); Mucus,Urine FEW /HPF
[2018-11-28] MEDS: ZOFRAN IV PRN (14:07)
[2018-11-28] MEDS: PEPCID PO SCH ×2 (14:14→22:16)
--- NOTE | 2018-11-28 14:55 | Consultation ---
History of Present Illness Consult date: 11/28/18 Chief complaint: lymphadenopathy - History of present illness History of present illness: 28 yo F with nonspecific lymphadenopathy presented to hospital for elective lymph node biopsy. In the preop area, she was found to be tachycardic, lethargic, and febrile. Surgery was cancelled and patient admitted to hospitalist service for evaluation of fever. She states she feels better today. Having some nausea but no vomiting. No fevers today. Medications and Allergies Allergies Allergy/AdvReac Type Severity Reaction Status Date / Time meloxicam AdvReac 'POSSIBLE'- Verified 11/21/18 10:45 HANDS SWELLING Home Medications Medication Instructions Recorded Confirmed Last Taken Type Ibuprofen 600 mg PO Q6H PRN 11/21/18 11/27/18 11/26/18 15:00 History predniSONE [Deltasone] 20 mg PO DAILY 11/21/18 11/27/18 11/26/18 15:00 History Active Meds: Active Medications Acetaminophen (Tylenol) 650 mg PO Q4H PRN PRN Reason: Pain MILD(1-3)/Fever >100.5/REDDY Enoxaparin Sodium (Lovenox) 40 mg SUB-Q QDAY@2200 ANIYAH Famotidine (Pepcid) 20 mg PO BID ANIYAH Last Admin: 11/28/18 14:14 Dose: 20 mg Documented by: Hydromorphone HCl (Dilaudid) 0.5 mg IV Q3H PRN PRN Reason: Pain , Severe (7-10) Piperacillin Sod/Tazobactam Sod (Zosyn/Ns 4.5gm/100ml) 4.5 gm in 100 mls @ 200 mls/hr IV Q8H ANIYAH; Protocol Last Admin: 11/28/18 14:20 Dose: 200 mls/hr Documented by: Vancomycin HCl 750 mg/ Sodium (Chloride) 265 mls @ 132.5 mls/hr IV Q12H ANIYAH Last Admin: 11/28/18 01:48 Dose: 132.5 mls/hr Documented by: Dextrose/Sodium Chloride (D5ns) 1,000 mls @ 75 mls/hr IV DIRECT ANIYAH Ibuprofen (Motrin) 600 mg PO Q6H PRN PRN Reason: Inflammation Last Admin: 11/28/18 05:45 Dose: 600 mg Documented by: Insulin Human Lispro (Humalog) 0 unit SUB-Q ACHS ANIYAH; Protocol Last Admin: 11/28/18 11:30 Dose: Not Given Documented by: Metoclopramide HCl (Reglan) 10 mg IV Q6H PRN PRN Reason: Nausea And Vomiting Ondansetron HCl (Zofran) 4 mg IV Q8H PRN PRN Reason: Nausea And Vomiting Last Admin: 11/28/18 14:07 Dose: 4 mg Documented by: Oxycodone/Acetaminophen (Percocet 5/325) 1 tab PO Q4H PRN PRN Reason: Pain, Moderate (4-6) Last Admin: 11/28/18 07:58 Dose: 1 tab Documented by: Sodium Chloride (Sodium Chloride Flush Syringe 10 Ml) 10 ml IV BID ANIYAH Last Admin: 11/28/18 10:00 Dose: Not Given Documented by: Sodium Chloride (Sodium Chloride Flush Syringe 10 Ml) 10 ml IV PRN PRN PRN Reason: LINE FLUSH Review of Systems All systems: negative (10 pt ROS performed and negative except for that listed in HPI) Exam Vital Signs Temp Pulse Resp BP Pulse Ox 100.2 F H 111 H 16 111/75 99 11/27/18 08:30 11/27/18 08:30 11/27/18 08:30 11/27/18 08:30 11/27/18 08:30 Narrative exam: Gen: AAOx3. NAD ENT: No scleral icterus or conjunctival pallor CV: s1, S2+ resp; even and unlabored Ext: no c/c/e Results - Labs 11/27/18 19:10 11/27/18 19:10 Abnormal lab results 11/27/18 11/27/18 11/27/18 Range/Units 11:33 19:10 19:10 RBC 3.57 L (3.65-5.03) M/mm3 Lymph # 0.9 L (1.2-5.4) K/mm3 Seg Neutrophils % 78.7 H (40.0-70.0) % Seg Neuts % (Manual) 81.0 H (40.0-70.0) % Lymphocytes % (Manual) 6.0 L (13.4-35.0) % Lymphocytes # (Manual) 0.4 L (1.2-5.4) K/mm3 Sodium 133 L (137-145) mmol/L Creatinine 0.6 L (0.7-1.2) mg/dL Glucose 187 H (65-100) mg/dL POC Glucose (70-105) Calcium 7.4 L (8.4-10.2) mg/dL AST 137 H (5-40) units/L Alkaline Phosphatase 34 L (35-129) units/L Total Protein 5.7 L (6.3-8.2) g/dL Albumin 2.2 L (3.9-5) g/dL Ur Specific [place] (1.003-1.030) 11/28/18 11/28/18 11/28/18 Range/Units 11:44 12:37 13:30 RBC (3.65-5.03) M/mm3 Lymph # (1.2-5.4) K/mm3 Seg Neutrophils % (40.0-70.0) % Seg Neuts % (Manual) (40.0-70.0) % Lymphocytes % (Manual) (13.4-35.0) % Lymphocytes # (Manual) (1.2-5.4) K/mm3 Sodium (137-145) mmol/L Creatinine (0.7-1.2) mg/dL Glucose (65-100) mg/dL POC Glucose 63 L 156 H (70-105) Calcium (8.4-10.2) mg/dL AST (5-40) units/L Alkaline Phosphatase (35-129) units/L Total Protein (6.3-8.2) g/dL Albumin (3.9-5) g/dL Ur Specific [place] 1.041 H (1.003-1.030) Diabetes panel 11/27/18 11/27/18 Range/Units 19:10 19:10 Sodium 133 L (137-145) mmol/L Potassium 3.8 (3.6-5.0) mmol/L Chloride 100.5 (98-107) mmol/L Carbon Dioxide 25 (22-30) mmol/L BUN 16 (7-17) mg/dL Creatinine 0.6 L (0.7-1.2) mg/dL Glucose 187 H (65-100) mg/dL Hemoglobin A1c 6.0 (4-6) % Calcium 7.4 L (8.4-10.2) mg/dL AST 137 H (5-40) units/L ALT 55 (7-56) units/L Alkaline Phosphatase 34 L (35-129) units/L Total Protein 5.7 L (6.3-8.2) g/dL Albumin 2.2 L (3.9-5) g/dL Calcium panel 11/27/18 Range/Units 19:10 Calcium 7.4 L (8.4-10.2) mg/dL Albumin 2.2 L (3.9-5) g/dL Pituitary panel 11/27/18 Range/Units 19:10 Sodium 133 L (137-145) mmol/L Potassium 3.8 (3.6-5.0) mmol/L Chloride 100.5 (98-107) mmol/L Carbon Dioxide 25 (22-30) mmol/L BUN 16 (7-17) mg/dL Creatinine 0.6 L (0.7-1.2) mg/dL Glucose 187 H (65-100) mg/dL Calcium 7.4 L (8.4-10.2) mg/dL Adrenal panel 11/27/18 Range/Units 19:10 Sodium 133 L (137-145) mmol/L Potassium 3.8 (3.6-5.0) mmol/L Chloride 100.5 (98-107) mmol/L Carbon Dioxide 25 (22-30) mmol/L BUN 16 (7-17) mg/dL Creatinine 0.6 L (0.7-1.2) mg/dL Glucose 187 H (65-100) mg/dL Calcium 7.4 L (8.4-10.2) mg/dL Total Bilirubin 0.40 (0.1-1.2) mg/dL AST 137 H (5-40) units/L ALT 55 (7-56) units/L Alkaline Phosphatase 34 L (35-129) units/L Total Protein 5.7 L (6.3-8.2) g/dL Albumin 2.2 L (3.9-5) g/dL Assessment and Plan 28 yo F with fever of unknown origin, nonspecific lymphadenopathy Plan: 1. w/u of fever per hospitalist service 2. discussed with Dr. Armijo. Recommend ID consult for w/u of fever prior to pursuing lymph node biopsy 3. If patient is still in hospital on Saturday and ok with ID, will consider moving forward with biopsy. Otherwise, will reschedule as outpatient. D/W Dr. Strong and Taylor. Thank you, please call with questions
--- NOTE | 2018-11-28 14:58 | Consultation ---
REASON FOR CONSULTATION: Lymphadenopathy, fever. HISTORY OF PRESENT ILLNESS: I saw the patient 28-year-old female in the medical floor. I had seen her in the clinic setting. At primary physician's place blood test had some myelocytes and she was referred herself. On examination, she was found to have left axillary lymph nodes and had sent her to surgical team. The patient had undergone ultrasound of the axilla and the patient had come today for lymph node biopsy; however, this was not done as the patient had severe issues. At this time; no headache, no visual disturbances. No ear discharge. No dysuria, no cough, no chest pain, no abdominal pain. No hematemesis, no hematochezia. PAST MEDICAL HISTORY: ALLERGIES: MELOXICAM. MEDICATIONS: Includes Pepcid, pain medications. PHYSICAL EXAMINATION: VITAL SIGNS: Temperature 102, pulse 98, respirations 18, BP 106/94. HEENT: No pallor, no icterus. Left axillary lymph nodes palpable. HEART: S1, S2. LUNGS: Clear to auscultation. ABDOMEN: Soft. EXTREMITIES: No calf tenderness. NEUROLOGIC: Alert, awake, oriented. LABORATORY DATA: White cell 5, hemoglobin 11, MCV 92, and platelet 293. Potassium 4, creatinine 0.6, calcium 7.4, AST 137, ALT 59. In the clinic setting had flow cytometry polytypic cells were seen, smear evaluation was unremarkable. B12 was 600. Folate was 19. Ferritin 34, creatinine 0.69. AST, ALT were normal. In the clinical setting on 10/22/2018. ASSESSMENT AND PLAN: Left axilla lymphadenopathy. Etiology is unclear at this time. This could be a viral etiology or an immune cause. The patient had abnormal myelocyte; however, by the time I had evaluated her 10/22/2018 smear and flow cytometry were normal. This could have been a transient phenomenon. Abnormal LFTs at this time. We will follow the trend. History of fever, being admitted for evaluation. JOB# [id number] NM/NTS
[2018-11-28] MEDS: D5NS 1,000 ML IV SCH (18:35)
--- NOTE | 2018-11-28 18:50 | Progress Note ---
Assessment and Plan Assessment and plan: Patient is a 28 yo woman without chronic medical problems who was referred by Dr. Ashlee Cortes to Dr. Armijo for B symptoms. Dr. Armijo found cervical LAD and referred to Dr. Vazquez for excisional biopsy. A Bilateral Axillary Ultrasound labelled as a Breast Ultrasound in EMR on 11/13/18 was done which showed Bilaterally enlarged lymph nodes palpated by her physician. Imaging of both axillary regions demonstrated approximately 6 lymph nodes in each axilla. The smallest nodes were approximately one centimeters in size. The 2 largest lymph nodes on the right measure 2.5 cm. On the left the 2 largest measure 2.8 and 2.3 cm respectively. All of the enlarged lymph nodes appear to be abnormal w ith markedly thickened cortices but no focal mass and no significant lobulation. Impression: Nonspecific adenopathy. Patient was scheduled for outpatient biopsy but she spiked a fever and biopsy was canceled to rule out sepsis and she was directly admitted 11/27/18. /Bilateral Axillary Lymph Adenopathy: Biopsy r/o HD Lymphoma once infection ruled out, possibly on Saturday /Sirs without organ dysfunction, poa, UA unremarkable, 2v CXR unremarkable, blood culture and urine culture pending: stop abx, consulted ID /Suspected Lymphoma: get willson CT abd/pelvis/chest d/w Dr. Urbano, ID to look for infection and staging. Needs outpt PET scan also. /Hyperglycemia followed by hypoglycemia this morning, BG 63: get a1c, start regular diet /GI/DVt ppx History Interval history: Patient was seen and examined. Follow-up on current diagnosis fevers. Overnight uneventful. Patient denies any chest pain, shortness breath, nausea/vomiting or severe headaches. Imaging, nursing note, chart, labs and old chart reviewed. Discussed with patient. Hospitalist Physical - Physical exam Narrative exam: Gen: thin frail, NAD, Awake, lethargic, Orientated HEENT: NCAT, EOMI, PERRL, OP Clear Neck: supple, +adenopathy, no thyromegaly, no JVD CVS/Heart: RRR, normal S1S2, pulses present bilaterally Chest/Lungs: CTA B, Symmetrical chest expansion, good air entry bilaterally GI/Abdomen: soft, NTND, good bowel sounds, no guarding or rebound /Bladder: no suprapubic tenderness, no CVA or paraspinal tenderness Extermity/Skin: no c/c/e, no obvious rash MSK: FROM x 4 Neuro: CN 2-12 grossly intact, no new focal deficits Psych: calm - Constitutional Vitals: Temp Pulse Resp BP Pulse Ox 98.2 F 73 18 101/72 96 11/28/18 16:39 11/28/18 16:39 11/28/18 16:39 11/28/18 16:39 11/28/18 16:39 Results - Labs CBC & Chem 7: 11/27/18 19:10 11/27/18 19:10 Labs: Laboratory Last Values WBC 5.1 K/mm3 (4.5-11.0) 11/27/18 19:10 RBC 3.57 M/mm3 (3.65-5.03) L 11/27/18 19:10 Hgb 11.0 gm/dl (10.1-14.3) 11/27/18 19:10 Hct 32.8 % (30.3-42.9) 11/27/18 19:10 MCV 92 fl (79-97) 11/27/18 19:10 MCH 31 pg (28-32) 11/27/18 19:10 MCHC 34 % (30-34) 11/27/18 19:10 RDW 15.1 % (13.2-15.2) 11/27/18 19:10 Plt Count 293 K/mm3 (140-440) 11/27/18 19:10 Lymph % (Auto) 18.0 % (13.4-35.0) 11/27/18 19:10 [place] % (Auto) 2.9 % (0.0-7.3) 11/27/18 19:10 Eos % (Auto) 0.0 % (0.0-4.3) 11/27/18 19:10 Baso % (Auto) 0.4 % (0.0-1.8) 11/27/18 19:10 Lymph # 0.9 K/mm3 (1.2-5.4) L 11/27/18 19:10 [place] # 0.1 K/mm3 (0.0-0.8) 11/27/18 19:10 Eos # 0.0 K/mm3 (0.0-0.4) 11/27/18 19:10 Baso # 0.0 K/mm3 (0.0-0.1) 11/27/18 19:10 Add Manual Diff Complete 11/27/18 11:33 Total Counted 100 11/27/18 11:33 Seg Neutrophils % 78.7 % (40.0-70.0) H 11/27/18 19:10 Seg Neuts % (Manual) 81.0 % (40.0-70.0) H 11/27/18 11:33 Band Neutrophils % 9.0 % 11/27/18 11:33 Lymphocytes % (Manual) 6.0 % (13.4-35.0) L 11/27/18 11:33 Reactive Lymphs % (Man) 0 % 11/27/18 11:33 Monocytes % (Manual) 2.0 % (0.0-7.3) 11/27/18 11:33 Eosinophils % (Manual) 0 % (0.0-4.3) 11/27/18 11:33 Basophils % (Manual) 0 % (0.0-1.8) 11/27/18 11:33 Metamyelocytes % 2.0 % 11/27/18 11:33 Myelocytes % 0 % 11/27/18 11:33 Promyelocytes % 0 % 11/27/18 11:33 Blast Cells % 0 % 11/27/18 11:33 Nucleated RBC % Not Reportable 11/27/18 11:33 Seg Neutrophils # 4.0 K/mm3 (1.8-7.7) 11/27/18 19:10 Seg Neutrophils # Man 5.2 K/mm3 (1.8-7.7) 11/27/18 11:33 Band Neutrophils # 0.6 K/mm3 11/27/18 11:33 Lymphocytes # (Manual) 0.4 K/mm3 (1.2-5.4) L 11/27/18 11:33 Abs React Lymphs (Man) 0.0 K/mm3 11/27/18 11:33 Monocytes # (Manual) 0.1 K/mm3 (0.0-0.8) 11/27/18 11:33 Eosinophils # (Manual) 0.0 K/mm3 (0.0-0.4) 11/27/18 11:33 Basophils # (Manual) 0.0 K/mm3 (0.0-0.1) 11/27/18 11:33 Metamyelocytes # 0.1 K/mm3 11/27/18 11:33 Myelocytes # 0.0 K/mm3 11/27/18 11:33 Promyelocytes # 0.0 K/mm3 11/27/18 11:33 Blast Cells # 0.0 K/mm3 11/27/18 11:33 WBC Morphology Not Reportable 11/27/18 11:33 Hypersegmented Neuts Not Reportable 11/27/18 11:33 Hyposegmented Neuts Not Reportable 11/27/18 11:33 Hypogranular Neuts Not Reportable 11/27/18 11:33 Smudge Cells Not Reportable 11/27/18 11:33 Toxic Granulation Not Reportable 11/27/18 11:33 Toxic Vacuolation Not Reportable 11/27/18 11:33 Dohle Bodies Not Reportable 11/27/18 11:33 Pelger-Huet Anomaly Not Reportable 11/27/18 11:33 Padma Rods Not Reportable 11/27/18 11:33 Platelet Estimate Consistent w auto 11/27/18 11:33 Clumped Platelets Not Reportable 11/27/18 11:33 Plt Clumps, EDTA Not Reportable 11/27/18 11:33 Large Platelets Not Reportable 11/27/18 11:33 Giant Platelets Not Reportable 11/27/18 11:33 Platelet Satelliting Not Reportable 11/27/18 11:33 Plt Morphology Comment Not Reportable 11/27/18 11:33 RBC Morphology Not Reportable 11/27/18 11:33 Dimorphic RBCs Not Reportable 11/27/18 11:33 Polychromasia Not Reportable 11/27/18 11:33 Hypochromasia Not Reportable 11/27/18 11:33 Poikilocytosis Few 11/27/18 11:33 Anisocytosis Not Reportable 11/27/18 11:33 Microcytosis Not Reportable 11/27/18 11:33 Macrocytosis Not Reportable 11/27/18 11:33 Spherocytes Not Reportable 11/27/18 11:33 Pappenheimer Bodies Not Reportable 11/27/18 11:33 Sickle Cells Not Reportable 11/27/18 11:33 Target Cells Not Reportable 11/27/18 11:33 Tear Drop Cells Not Reportable 11/27/18 11:33 Ovalocytes Few 11/27/18 11:33 Helmet Cells Not Reportable 11/27/18 11:33 [place] Bodies Not Reportable 11/27/18 11:33 [place] Rings Not Reportable 11/27/18 11:33 Baldev Cells Not Reportable 11/27/18 11:33 Bite Cells Not Reportable 11/27/18 11:33 Crenated Cell Not Reportable 11/27/18 11:33 Elliptocytes Not Reportable 11/27/18 11:33 Acanthocytes (Spur) Not Reportable 11/27/18 11:33 Rouleaux Not Reportable 11/27/18 11:33 Hemoglobin C Crystals Not Reportable 11/27/18 11:33 Schistocytes Not Reportable 11/27/18 11:33 Malaria parasites Not Reportable 11/27/18 11:33 ESR 34 mm/Hr (0-20) 11/27/18 11:33 [place] Bodies Not Reportable 11/27/18 11:33 Hem Pathologist Commnt No 11/27/18 11:33 Sodium 133 mmol/L (137-145) L 11/27/18 19:10 Potassium 3.8 mmol/L (3.6-5.0) 11/27/18 19:10 Chloride 100.5 mmol/L (98-107) 11/27/18 19:10 Carbon Dioxide 25 mmol/L (22-30) 11/27/18 19:10 Anion Gap 11 mmol/L 11/27/18 19:10 BUN 16 mg/dL (7-17) 11/27/18 19:10 Creatinine 0.6 mg/dL (0.7-1.2) L 11/27/18 19:10 Estimated GFR > 60 ml/min 11/27/18 19:10 BUN/Creatinine Ratio 27 % 11/27/18 19:10 Glucose 187 mg/dL (65-100) H 11/27/18 19:10 POC Glucose 111 (70-105) H 11/28/18 16:03 Hemoglobin A1c 6.0 % (4-6) 11/27/18 19:10 Calcium 7.4 mg/dL (8.4-10.2) L 11/27/18 19:10 Total Bilirubin 0.40 mg/dL (0.1-1.2) 11/27/18 19:10 AST 137 units/L (5-40) H 11/27/18 19:10 ALT 55 units/L (7-56) 11/27/18 19:10 Alkaline Phosphatase 34 units/L (35-129) L 11/27/18 19:10 Total Protein 5.7 g/dL (6.3-8.2) L 11/27/18 19:10 Albumin 2.2 g/dL (3.9-5) L 11/27/18 19:10 Albumin/Globulin Ratio 0.6 % 11/27/18 19:10 TSH 0.281 mlU/mL (0.270-4.200) 11/27/18 11:33 Urine Color [place]isha (Yellow) 11/28/18 13:30 Urine Turbidity Clear (Clear) 11/28/18 13:30 Urine pH 5.0 (5.0-7.0) 11/28/18 13:30 Ur Specific [place] 1.041 (1.003-1.030) H 11/28/18 13:30 Urine Protein 30 mg/dl mg/dL (Negative) 11/28/18 13:30 Urine Glucose (UA) Neg mg/dL (Negative) 11/28/18 13:30 Urine Ketones Neg mg/dL (Negative) 11/28/18 13:30 Urine Blood Neg (Negative) 11/28/18 13:30 Urine Nitrite Neg (Negative) 11/28/18 13:30 Urine Bilirubin Neg (Negative) 11/28/18 13:30 Urine Urobilinogen 2.0 mg/dL (<2.0) 11/28/18 13:30 Ur Leukocyte Esterase Neg (Negative) 11/28/18 13:30 Urine WBC (Auto) 6.0 /HPF (0.0-6.0) 11/28/18 13:30 Urine RBC (Auto) 4.0 /HPF (0.0-6.0) 11/28/18 13:30 U Epithel Cells (Auto) 3.0 /HPF (0-13.0) 11/28/18 13:30 Urine Mucus Few /HPF 11/28/18 13:30 Hepatitis A IgM Ab Non-reactive (NonReactive) 11/28/18 06:16 Hep Bs Antigen Non-reactive (Negative) 11/28/18 06:16 Hep B Core IgM Ab Non-reactive (NonReactive) 11/28/18 06:16 Hepatitis C Antibody Non-reactive (NonReactive) 11/28/18 06:16 Active Medications - Current Medications Current Medications: Generic Name Dose Route Start Last Admin Trade Name Freq PRN Reason Stop Dose Admin Acetaminophen 650 mg 11/27/18 18:15 Tylenol PO Q4H PRN Pain MILD(1-3)/Fever >100.5/REDDY Enoxaparin Sodium 40 mg 11/28/18 22:00 Lovenox SUB-Q QDAY@2200 ANIYAH Famotidine 20 mg 11/27/18 22:00 11/28/18 14:14 Pepcid PO 20 mg BID ANIYAH Administration Hydromorphone HCl 0.5 mg 11/27/18 11:08 Dilaudid IV Q3H PRN Pain , Severe (7-10) Dextrose/Sodium Chloride 1,000 mls @ 75 mls/hr 11/28/18 06:00 11/28/18 18:35 D5ns IV 75 mls/hr DIRECT ANIYAH Administration Ibuprofen 600 mg 11/27/18 18:27 11/28/18 05:45 Motrin PO 600 mg Q6H PRN Administration Inflammation Insulin Human Lispro 0 unit 11/28/18 11:30 11/28/18 16:43 Humalog SUB-Q Not Given ACHS [facility] Protocol Metoclopramide HCl 10 mg 11/27/18 18:15 Reglan IV Q6H PRN Nausea And Vomiting Ondansetron HCl 4 mg 11/27/18 18:15 11/28/18 14:07 Zofran IV 4 mg Q8H PRN Administration Nausea And Vomiting Oxycodone/Acetaminophen 1 tab 11/27/18 11:09 11/28/18 07:58 Percocet 5/325 PO 1 tab Q4H PRN Administration Pain, Moderate (4-6) Sodium Chloride 10 ml 11/27/18 22:00 11/28/18 10:00 Sodium Chloride Flush Syringe 10 Ml IV Not Given BID ANIYAH Sodium Chloride 10 ml 11/27/18 18:15 Sodium Chloride Flush Syringe 10 Ml IV PRN PRN LINE FLUSH
[2018-11-28] MEDS: LOVENOX SUB-Q SCH (22:16)
[2018-11-29 08:09] LABS: Hematocrit 35.3 % (30.3-42.9); Hemoglobin 11.7 gm/dl (10.1-14.3); Mean Corpuscular HGB Conc 33 % (30-34); Mean Corpuscular Volume 92 fl (79-97); Platelet Count 261 K/mm3 (140-440); Red Blood Count 3.83 M/mm3 (3.65-5.03); Red Cell Distribution Width 15.1 % (13.2-15.2)
[2018-11-29 08:27] LABS: BUN/Creatinine Ratio 24; Blood Urea Nitrogen 12 mg/dL (7-17); Calcium 7.3 mg/dL (8.4-10.2); Hemolysis Index 5
[2018-11-29] MEDS ORDERED: D50W (25GM) Syringe IV ONE (09:00)
[2018-11-29] MEDS: HumaLOG SUB-Q SCH ×4 (09:35→23:44)
[2018-11-29] MEDS: PEPCID PO SCH ×2 (09:35→21:41)
[2018-11-29] MEDS: SODIUM CHLORIDE FLUSH SYRINGE 10 ML IV SCH ×2 (09:37→22:00)
--- NOTE | 2018-11-29 13:52 | Consultation ---
History of Present Illness - Reason for Consult Consult date: 11/29/18 FUO Requesting physician: ESTHER MEEKS - History of Present Illness 28 y/o female with no medical history; admitted on 11/27/2017 for elective lymph node biopsy. She reported she was seen by her PCP 2 months before admission and noted to have bilateral axilary LNs. In the preop area, she was found to be tachycardic, lethargic, and febrile. Surgery was cancelled and patient admitted to hospitalist service for evaluation of fever. She reports 2-week history of on/off fever, chills, malaise. Reports sore throat and nausea. Denies weight loss, cough, SOB,urinary symptoms, diarrhea, abdominal pain, pruritus. Denies any recent travels. Denies sick contacts. She has a son. Denies tob, ETOH, drugs. Non sexually active for over 12 months. On admission, temp 100.2-101.5, HR 111, R 16, O2 sat 99%, BP 111/75. WBC 6.4, Hg 11.4, Plat 320. Creat 0.6. Na 131. AST 145. ALT 54. Viral hep all negative. UA neg. Blood culture 11/27/2018 no growth today. Urine culture 11/27/2018 no growth. CXR showed no acute cardiopulmonary process. Review of Systems: General: +fever, +chills, +malaise Cutaneous: no rash, pruritus Head: no headaches or injury Eyes: no changes in vision, eye pain, double vision Ears: no ear pain, ear discharge, ringing or hearing loss Nose: no nose bleeding, stuffiness Mouth & throat: no bleeding gums, no horseness, no dental problems, or swollen glands Neck: no pain, node enlargement/lumps, tyroid enlargement or tenderness Respiratory: no cough, wheezing, sputum, hemoptysis, pleuritic chest pain Cardiovascular: no chest pain, leg edema, cyanosis, GARZA, orthopnea Musculoskeletal: no decreased joint motion, bone or joint pain, joint swelling, muscle aches Gastrointestinal: + nausea, no vomiting, hematemesis, diarrhea, constipation, melena, bright red blood in stools, fecal incontinence, jaundice Genitourinary/Reproductive: no frequent urination, dysuria, hematuria, incontinence Neurogical: no seizures, no headaches, no weakness, no paresthesias, no loss of speech or vision; no memory loss, no vertigo, no tremors, no numbness Psychiatric: stable mood; no excessive anxiety, sadness or moodiness Medications and Allergies Allergies Allergy/AdvReac Type Severity Reaction Status Date / Time meloxicam AdvReac 'POSSIBLE'- Verified 11/21/18 10:45 HANDS SWELLING Home Medications Medication Instructions Recorded Confirmed Last Taken Type Ibuprofen 600 mg PO Q6H PRN 11/21/18 11/27/18 11/26/18 15:00 History predniSONE [Deltasone] 20 mg PO DAILY 11/21/18 11/27/18 11/26/18 15:00 History Active Meds: Active Medications Acetaminophen (Tylenol) 650 mg PO Q4H PRN PRN Reason: Pain MILD(1-3)/Fever >100.5/REDDY Enoxaparin Sodium (Lovenox) 40 mg SUB-Q QDAY@2200 [facility] Last Admin: 11/28/18 22:16 Dose: 40 mg Documented by: Famotidine (Pepcid) 20 mg PO BID [facility] Last Admin: 11/29/18 09:35 Dose: 20 mg Documented by: Hydromorphone HCl (Dilaudid) 0.5 mg IV Q3H PRN PRN Reason: Pain , Severe (7-10) Dextrose/Sodium Chloride (D5ns) 1,000 mls @ 75 mls/hr IV DIRECT [facility] Last Admin: 11/28/18 18:35 Dose: 75 mls/hr Documented by: Ibuprofen (Motrin) 600 mg PO Q6H PRN PRN Reason: Inflammation Last Admin: 11/28/18 22:16 Dose: 600 mg Documented by: Insulin Human Lispro (Humalog) 0 unit SUB-Q ACHS [facility]; Protocol Last Admin: 11/29/18 09:35 Dose: Not Given Documented by: Metoclopramide HCl (Reglan) 10 mg IV Q6H PRN PRN Reason: Nausea And Vomiting Ondansetron HCl (Zofran) 4 mg IV Q8H PRN PRN Reason: Nausea And Vomiting Last Admin: 11/28/18 14:07 Dose: 4 mg Documented by: Oxycodone/Acetaminophen (Percocet 5/325) 1 tab PO Q4H PRN PRN Reason: Pain, Moderate (4-6) Last Admin: 11/28/18 07:58 Dose: 1 tab Documented by: Sodium Chloride (Sodium Chloride Flush Syringe 10 Ml) 10 ml IV BID ANIYAH Last Admin: 11/29/18 09:37 Dose: 10 ml Documented by: Sodium Chloride (Sodium Chloride Flush Syringe 10 Ml) 10 ml IV PRN PRN PRN Reason: LINE FLUSH Physical Examination - Physical Exam Narrative exam: General appearance: Alert in NAD, conversant Eyes: anicteric sclerae, moist conjunctivae; no lid-lag; PERRLA HENT: Atraumatic; oropharynx clear with moist mucous membranes and no mucosal ulcerations/no oral thrush; normal hard and soft palate. Normal external ears. Neck: Trachea midline; supple, no thyromegaly or lymphadenopathy Lungs: CTA, with normal respiratory effort and no intercostal retractions CV: RRR, no murmurs Abdomen: Soft, non-tender; no masses or hepatosplenomegaly Extremities: No peripheral edema. [place] axillary small LNs Skin: Normal temperature, turgor and texture; no rash, ulcers or subcutaneous nodules Psych: Appropriate affect, alert and oriented to person, place and time. Neuro: alert and oriented x 3. Moving all extermities - Constitutional Vitals: Vital Signs Temp Pulse Resp BP Pulse Ox 98.6 F 65 19 120/73 94 11/29/18 12:05 11/29/18 12:05 11/29/18 12:05 11/29/18 12:05 11/29/18 12:05 Temperature -Last 24 Hours Temperature 98.6 F Temperature 97.7 F Temperature 98.2 F Results - Labs CBC & Chem 7: 11/29/18 07:21 11/29/18 07:21 Labs: Abnormal lab results 11/28/18 11/28/18 11/28/18 Range/Units 13:30 16:03 21:56 WBC (4.5-11.0) K/mm3 Chloride (98-107) mmol/L Creatinine (0.7-1.2) mg/dL POC Glucose 111 H 115 H (70-105) Calcium (8.4-10.2) mg/dL Ur Specific [place] 1.041 H (1.003-1.030) 11/29/18 11/29/18 11/29/18 Range/Units 07:21 07:21 07:48 WBC 3.2 L (4.5-11.0) K/mm3 Chloride 109.4 H (98-107) mmol/L Creatinine 0.5 L (0.7-1.2) mg/dL POC Glucose 62 L (70-105) Calcium 7.3 L (8.4-10.2) mg/dL Ur Specific [place] (1.003-1.030) 11/29/18 11/29/18 Range/Units 09:07 11:14 WBC (4.5-11.0) K/mm3 Chloride (98-107) mmol/L Creatinine (0.7-1.2) mg/dL POC Glucose 267 H 113 H (70-105) Calcium (8.4-10.2) mg/dL Ur Specific [place] (1.003-1.030) Assessment and Plan Cultures: Blood culture 11/27/2018 no growth today. Assessment: 28 y/o female with no medical history; admitted on 11/27/2017 for elective lymph node biopsy. She reported she was seen by her PCP 2 months before admission and noted to have bilateral axilary LNs. In the preop area, she was found to be tachycardic, lethargic, and febrile. Surgery was cancelled and patient admitted to hospitalist service for evaluation of fever. She reports 2-week history of on/off fever, chills, malaise: 1) FUO associated with bilateral axillary LNs: unclear source. Broad DDx. acute mononucleosis (EBV/CMV) +/- HIV +/- cat scratch disease +/- autoimmune +/- malignancy. Blood culture 11/27/2018 no growth today. UA neg. CXR neg. HIV test a month ago neg per patient. 2) Elevated LFTs: unclear etiology ? acute mononucleosis (EBV/CMV) +/- HIV. Viral hepatitis panel all negative. Recommendations: - follow-up blood cultures, urine culture - obtain CT chest, abdomen and pelvis - check HIV, CMV, EBV, CEASAR, C3/C4, CRP - monitor off antibiotics Dr Jaquan gibson on Saturday Aidee Doe MD Infectious [facility] M [phone] O [phone]
--- NOTE | 2018-11-29 14:55 | Cat Scan Report ---
PROCEDURE: Chest CT with IV contrast Abdomen CT with IV contrast Pelvic CT with contrast TECHNIQUE: CT examination of the chest after IV contrast administration CT examination of the abdomen after IV contrast administration CT examination of the pelvis after IV contrast administration HISTORY: fever, ab pains COMPARISONS: None FINDINGS: CHEST: Normal cardiac size without pericardial effusion. Intact normal caliber thoracic aorta. Normal-appear ing esophagus. No hilar mass or mediastinal adenopathy. No filling defect in the visualized pulmonary arteries. Very small right pleural effusion. Small left pleural effusion layers posteriorly with adjacent slight compressive atelectasis and/or le ft lower lobe pneumonitis. No acute fracture. No pneumothorax. No definite lung mass or nodule. IMPRESSION: Very small right pleural effusion Small left pleural effusion layers posteriorly with adjacent slight left lower lobe consolidation. Th is may be compressive atelectasis and/or pneumonia ABDOMEN AND PELVIS: No acute fracture. Smoothly marginated hypodense right and left hepatic lobe lesions are nonspecific and statistically m ost likely reflect cysts and/or hemangiomas. Nonspecific gallbladder wall slight hyper enhancement with IV contrast. No CT evidence of gallstones or biliary distention. Normal-appearing adrenals and pancreas. Smoothly marginated hypodense right and left splenic lesions are nonspecific and statistically most l ikely reflect cysts and/or hemangiomas. Intact normal caliber abdominal aorta and IVC. Normal-appearing kidneys without calculus or hydronephrosis. The ureters are obscured by adjacent str uctures. Intact abdominal wall without hernia. No retroperitoneal adenopathy. No evidence of mesenter ic mass. Normal-appearing stomach and duodenum. No small bowel distention in the abdomen and pelvis. No intestinal obstruction with oral contrast reaching the sigmoid colon. Nonspecific slight to moderate pelvic free fluid may be reactive. Normal-appearing urinary bladder, uterus, adnexa, and rectum. Normal-appearing sigmoid colon. No evid ence of free air or colonic distention. Normal-appearing cecum and terminal ileum. Normal appendix. IMPRESSION: Nonspecific gallbladder wall slight hyperenhancement may reflect mild cholecystitis. No CT evidence o f gallstones Splenic and liver lesions statistically most likely reflecting cysts and/or hemangiomas. Given histor y of fever, inflammatory or infectious etiologies not entirely excluded Slight to moderate pelvic free fluid may be reactive. Consider also pelvic inflammatory disease This document is electronically signed by Jeffery Cardozo MD., November 30 2018 07:20:10 AM ET
[2018-11-29] MEDS: D5NS 1,000 ML IV SCH (16:43)
--- NOTE | 2018-11-29 18:07 | Progress Note ---
Assessment and Plan Assessment and plan: Patient is a 28 yo woman without chronic medical problems who was referred by Dr. Ashlee Cortes to Dr. Armijo for B symptoms. Dr. Armijo found cervical LAD and referred to Dr. Vazquez for excisional biopsy. A Bilateral Axillary Ultrasound labelled as a Breast Ultrasound in EMR on 11/13/18 was done which showed Bilaterally enlarged lymph nodes palpated by her physician. Imaging of both axillary regions demonstrated approximately 6 lymph nodes in each axilla. The smallest nodes were approximately one centimeters in size. The 2 largest lymph nodes on the right measure 2.5 cm. On the left the 2 largest measure 2.8 and 2.3 cm respectively. All of the enlarged lymph nodes appear to be abnormal w ith markedly thickened cortices but no focal mass and no significant lobulation. Impression: Nonspecific adenopathy. Patient was scheduled for outpatient biopsy but she spiked a fever and biopsy was canceled to rule out sepsis and she was directly admitted 11/27/18. * CT abd/pelvis with iv contrast IMPRESSION: Nonspecific gallbladder wall slight hyperenhancement may reflect mild cholecystitis. No CT evidence of gallstones Splenic and liver lesions statistically most likely reflecting cysts and/or hemangiomas. Given history of fever, inflammatory or infectious etiologies not entirely excluded Slight to moderate pelvic free fluid may be reactive. Consider also pelvic inflammatory disease * CT chest with iv contrast IMPRESSION: Very small right pleural effusion Small left pleural effusion layers posteriorly with adjacent slight left lower lobe consolidation. This may be compressive atelectasis and/or pneumonia. NO hilar mass or mediastinal adenopathy. /Bilateral Axillary Lymph Adenopathy: Biopsy r/o HD Lymphoma once infection ruled out, possibly on Saturday /Sirs without organ dysfunction, poa, UA unremarkable, 2v CXR unremarkable, bloo d culture and urine culture pending: stop abx, consulted ID /Suspected Lymphoma: get willson CT abd/pelvis/chest d/w Dr. Urbano, ID to look for infection and staging. Needs outpt PET scan also. /Hyperglycemia followed by hypoglycemia this morning, BG 63==>A1c 6.0: start regular diet /GI/DVt ppx History Interval history: Patient was seen and examined. Follow-up on current diagnosis fevers. Overnight uneventful. Patient denies any chest pain, shortness breath, nausea/vomiting or severe headaches. Imaging, nursing note, chart, labs and old chart reviewed. Discussed with patient. Hospitalist Physical - Physical exam Narrative exam: Gen: thin frail, NAD, Awake, lethargic, Orientated HEENT: NCAT, EOMI, PERRL, OP Clear Neck: supple, +adenopathy, no thyromegaly, no JVD CVS/Heart: RRR, normal S1S2, pulses present bilaterally Chest/Lungs: CTA B, Symmetrical chest expansion, good air entry bilaterally GI/Abdomen: soft, NTND, good bowel sounds, no guarding or rebound /Bladder: no suprapubic tenderness, no CVA or paraspinal tenderness Extermity/Skin: no c/c/e, no obvious rash MSK: FROM x 4 Neuro: CN 2-12 grossly intact, no new focal deficits Psych: calm - Constitutional Vitals: Temp Pulse Resp BP Pulse Ox 101.1 F H 125 H 18 120/71 82 L 11/29/18 17:19 11/29/18 17:19 11/29/18 17:19 11/29/18 17:19 11/29/18 17:19 Results - Labs CBC & Chem 7: 11/29/18 07:21 11/29/18 07:21 Labs: Laboratory Last Values WBC 3.2 K/mm3 (4.5-11.0) L 11/29/18 07:21 RBC 3.83 M/mm3 (3.65-5.03) 11/29/18 07:21 Hgb 11.7 gm/dl (10.1-14.3) 11/29/18 07:21 Hct 35.3 % (30.3-42.9) 11/29/18 07:21 MCV 92 fl (79-97) 11/29/18 07:21 MCH 31 pg (28-32) 11/29/18 07:21 MCHC 33 % (30-34) 11/29/18 07:21 RDW 15.1 % (13.2-15.2) 11/29/18 07:21 Plt Count 261 K/mm3 (140-440) 11/29/18 07:21 Lymph % (Auto) 18.0 % (13.4-35.0) 11/27/18 19:10 [place] % (Auto) 2.9 % (0.0-7.3) 11/27/18 19:10 Eos % (Auto) 0.0 % (0.0-4.3) 11/27/18 19:10 Baso % (Auto) 0.4 % (0.0-1.8) 11/27/18 19:10 Lymph # 0.9 K/mm3 (1.2-5.4) L 11/27/18 19:10 [place] # 0.1 K/mm3 (0.0-0.8) 11/27/18 19:10 Eos # 0.0 K/mm3 (0.0-0.4) 11/27/18 19:10 Baso # 0.0 K/mm3 (0.0-0.1) 11/27/18 19:10 Add Manual Diff Complete 11/27/18 11:33 Total Counted 100 11/27/18 11:33 Seg Neutrophils % 78.7 % (40.0-70.0) H 11/27/18 19:10 Seg Neuts % (Manual) 81.0 % (40.0-70.0) H 11/27/18 11:33 Band Neutrophils % 9.0 % 11/27/18 11:33 Lymphocytes % (Manual) 6.0 % (13.4-35.0) L 11/27/18 11:33 Reactive Lymphs % (Man) 0 % 11/27/18 11:33 Monocytes % (Manual) 2.0 % (0.0-7.3) 11/27/18 11:33 Eosinophils % (Manual) 0 % (0.0-4.3) 11/27/18 11:33 Basophils % (Manual) 0 % (0.0-1.8) 11/27/18 11:33 Metamyelocytes % 2.0 % 11/27/18 11:33 Myelocytes % 0 % 11/27/18 11:33 Promyelocytes % 0 % 11/27/18 11:33 Blast Cells % 0 % 11/27/18 11:33 Nucleated RBC % Not Reportable 11/27/18 11:33 Seg Neutrophils # 4.0 K/mm3 (1.8-7.7) 11/27/18 19:10 Seg Neutrophils # Man 5.2 K/mm3 (1.8-7.7) 11/27/18 11:33 Band Neutrophils # 0.6 K/mm3 11/27/18 11:33 Lymphocytes # (Manual) 0.4 K/mm3 (1.2-5.4) L 11/27/18 11:33 Abs React Lymphs (Man) 0.0 K/mm3 11/27/18 11:33 Monocytes # (Manual) 0.1 K/mm3 (0.0-0.8) 11/27/18 11:33 Eosinophils # (Manual) 0.0 K/mm3 (0.0-0.4) 11/27/18 11:33 Basophils # (Manual) 0.0 K/mm3 (0.0-0.1) 11/27/18 11:33 Metamyelocytes # 0.1 K/mm3 11/27/18 11:33 Myelocytes # 0.0 K/mm3 11/27/18 11:33 Promyelocytes # 0.0 K/mm3 11/27/18 11:33 Blast Cells # 0.0 K/mm3 11/27/18 11:33 WBC Morphology Not Reportable 11/27/18 11:33 Hypersegmented Neuts Not Reportable 11/27/18 11:33 Hyposegmented Neuts Not Reportable 11/27/18 11:33 Hypogranular Neuts Not Reportable 11/27/18 11:33 Smudge Cells Not Reportable 11/27/18 11:33 Toxic Granulation Not Reportable 11/27/18 11:33 Toxic Vacuolation Not Reportable 11/27/18 11:33 Dohle Bodies Not Reportable 11/27/18 11:33 Pelger-Huet Anomaly Not Reportable 11/27/18 11:33 Padma Rods Not Reportable 11/27/18 11:33 Platelet Estimate Consistent w auto 11/27/18 11:33 Clumped Platelets Not Reportable 11/27/18 11:33 Plt Clumps, EDTA Not Reportable 11/27/18 11:33 Large Platelets Not Reportable 11/27/18 11:33 Giant Platelets Not Reportable 11/27/18 11:33 Platelet Satelliting Not Reportable 11/27/18 11:33 Plt Morphology Comment Not Reportable 11/27/18 11:33 RBC Morphology Not Reportable 11/27/18 11:33 Dimorphic RBCs Not Reportable 11/27/18 11:33 Polychromasia Not Reportable 11/27/18 11:33 Hypochromasia Not Reportable 11/27/18 11:33 Poikilocytosis Few 11/27/18 11:33 Anisocytosis Not Reportable 11/27/18 11:33 Microcytosis Not Reportable 11/27/18 11:33 Macrocytosis Not Reportable 11/27/18 11:33 Spherocytes Not Reportable 11/27/18 11:33 Pappenheimer Bodies Not Reportable 11/27/18 11:33 Sickle Cells Not Reportable 11/27/18 11:33 Target Cells Not Reportable 11/27/18 11:33 Tear Drop Cells Not Reportable 11/27/18 11:33 Ovalocytes Few 11/27/18 11:33 Helmet Cells Not Reportable 11/27/18 11:33 [place] Bodies Not Reportable 11/27/18 11:33 [place] Rings Not Reportable 11/27/18 11:33 [place] Cells Not Reportable 11/27/18 11:33 Bite Cells Not Reportable 11/27/18 11:33 Crenated Cell Not Reportable 11/27/18 11:33 Elliptocytes Not Reportable 11/27/18 11:33 Acanthocytes (Spur) Not Reportable 11/27/18 11:33 Rouleaux Not Reportable 11/27/18 11:33 Hemoglobin C Crystals Not Reportable 11/27/18 11:33 Schistocytes Not Reportable 11/27/18 11:33 Malaria parasites Not Reportable 11/27/18 11:33 ESR 34 mm/Hr (0-20) 11/27/18 11:33 [place] Bodies Not Reportable 11/27/18 11:33 Hem Pathologist Commnt No 11/27/18 11:33 Sodium 140 mmol/L (137-145) D 11/29/18 07:21 Potassium 3.6 mmol/L (3.6-5.0) 11/29/18 07:21 Chloride 109.4 mmol/L (98-107) H 11/29/18 07:21 Carbon Dioxide 24 mmol/L (22-30) 11/29/18 07:21 Anion Gap 10 mmol/L 11/29/18 07:21 BUN 12 mg/dL (7-17) 11/29/18 07:21 Creatinine 0.5 mg/dL (0.7-1.2) L 11/29/18 07:21 Estimated GFR > 60 ml/min 11/29/18 07:21 BUN/Creatinine Ratio 24 % 11/29/18 07:21 Glucose 91 mg/dL (65-100) 11/29/18 07:21 POC Glucose 95 (70-105) 11/29/18 17:05 Hemoglobin A1c 6.0 % (4-6) 11/27/18 19:10 Calcium 7.3 mg/dL (8.4-10.2) L 11/29/18 07:21 Total Bilirubin 0.40 mg/dL (0.1-1.2) 11/27/18 19:10 AST 137 units/L (5-40) H 11/27/18 19:10 ALT 55 units/L (7-56) 11/27/18 19:10 Alkaline Phosphatase 34 units/L (35-129) L 11/27/18 19:10 Total Protein 5.7 g/dL (6.3-8.2) L 11/27/18 19:10 Albumin 2.2 g/dL (3.9-5) L 11/27/18 19:10 Albumin/Globulin Ratio 0.6 % 11/27/18 19:10 TSH 0.281 mlU/mL (0.270-4.200) 11/27/18 11:33 Urine Color Latisha (Yellow) 11/28/18 13:30 Urine Turbidity Clear (Clear) 11/28/18 13:30 Urine pH 5.0 (5.0-7.0) 11/28/18 13:30 Ur Specific [place] 1.041 (1.003-1.030) H 11/28/18 13:30 Urine Protein 30 mg/dl mg/dL (Negative) 11/28/18 13:30 Urine Glucose (UA) Neg mg/dL (Negative) 11/28/18 13:30 Urine Ketones Neg mg/dL (Negative) 11/28/18 13:30 Urine Blood Neg (Negative) 11/28/18 13:30 Urine Nitrite Neg (Negative) 11/28/18 13:30 Urine Bilirubin Neg (Negative) 11/28/18 13:30 Urine Urobilinogen 2.0 mg/dL (<2.0) 11/28/18 13:30 Ur Leukocyte Esterase Neg (Negative) 11/28/18 13:30 Urine WBC (Auto) 6.0 /HPF (0.0-6.0) 11/28/18 13:30 Urine RBC (Auto) 4.0 /HPF (0.0-6.0) 11/28/18 13:30 U Epithel Cells (Auto) 3.0 /HPF (0-13.0) 11/28/18 13:30 Urine Mucus Few /HPF 11/28/18 13:30 Hepatitis A IgM Ab Non-reactive (NonReactive) 11/28/18 06:16 Hep Bs Antigen Non-reactive (Negative) 11/28/18 06:16 Hep B Core IgM Ab Non-reactive (NonReactive) 11/28/18 06:16 Hepatitis C Antibody Non-reactive (NonReactive) 11/28/18 06:16 HIV 1&2 Antibody Rapid Non react (Non React) 11/29/18 16:02 HIV P24 Antigen Non react (Non React) 11/29/18 16:02 Active Medications - Current Medications Current Medications: Generic Name Dose Route Start Last Admin Trade Name Freq PRN Reason Stop Dose Admin Acetaminophen 650 mg 11/27/18 18:15 Tylenol PO Q4H PRN Pain MILD(1-3)/Fever >100.5/REDDY Enoxaparin Sodium 40 mg 11/28/18 22:00 11/28/18 22:16 Lovenox SUB-Q 40 mg QDAY@2200 ANIYAH Administration Famotidine 20 mg 11/27/18 22:00 11/29/18 09:35 Pepcid PO 20 mg BID ANIYAH Administration Hydromorphone HCl 0.5 mg 11/27/18 11:08 Dilaudid IV Q3H PRN Pain , Severe (7-10) Dextrose/Sodium Chloride 1,000 mls @ 75 mls/hr 11/28/18 06:00 11/29/18 16:43 D5ns IV 75 mls/hr DIRECT ANIYAH Administration Ibuprofen 800 mg 11/29/18 18:02 Motrin PO Q8H PRN Non Cardiac Pain or Temp>100.5 Insulin Human Lispro 0 unit 11/28/18 11:30 11/29/18 17:53 Humalog SUB-Q Not Given ACHS ANIYAH Protocol Metoclopramide HCl 10 mg 11/27/18 18:15 Reglan IV Q6H PRN Nausea And Vomiting Ondansetron HCl 4 mg 11/27/18 18:15 11/28/18 14:07 Zofran IV 4 mg Q8H PRN Administration Nausea And Vomiting Oxycodone/Acetaminophen 1 tab 11/27/18 11:09 11/28/18 07:58 Percocet 5/325 PO 1 tab Q4H PRN Administration Pain, Moderate (4-6) Sodium Chloride 10 ml 11/27/18 22:00 11/29/18 09:37 Sodium Chloride Flush Syringe 10 Ml IV 10 ml BID ANIYAH Administration Sodium Chloride 10 ml 11/27/18 18:15 Sodium Chloride Flush Syringe 10 Ml IV PRN PRN LINE FLUSH
[2018-11-29] MEDS: TYLENOL PO PRN (18:10)
--- NOTE | 2018-11-29 19:04 | Hem/Onc Progress Note ---
Assessment and Plan B/l axilla lymphadenopathy. Etiology is unclear at this time. This could be a viral etiology or an immune cause. neoplasm is a differential. The patient had abnormal myelocyte; however, by the time I had evaluated her 10/22/2018 smear and flow cytometry were normal. This could have been a transient phenomenon. Abnormal LFTs. We will follow the trend. History of fever, being admitted for evaluation. 11/28 d/w dr prado - ID consult for fever CT CAP planned LN bx planned - once no fever 11/19 - pt had CT CAP - no LNs - ? hemangioma - liver - spleen d/w pts mother and father - Patient Problems (1) Lymphadenopathy Current Visit: Yes Status: Acute Subjective Date of service: 11/29/18 Principal diagnosis: axillary LN Interval history: CT CAP Objective - Constitutional Vitals: Last Vital Signs Temp 101.1 F H 11/29/18 17:19 Pulse 125 H 11/29/18 17:19 Resp 18 11/29/18 17:19 BP 120/71 11/29/18 17:19 Pulse Ox 82 L 11/29/18 17:19 Pain Intensity (0-10): denies any pain General appearance: no acute distress Performance status: 2- selfcare, ambulatory - EENT Eyes: EOM intact ENT: clear oral mucosa Lymph node exam: bilateral axillary - Neck Neck: normal ROM - Respiratory Respiratory effort: Positive: normal Respiratory: bilateral: CTA - Cardiovascular Heart Sounds: Present: S1 & S2 Extremities: No edema - Gastrointestinal General gastrointestinal: Present: deferred Rectal Exam: deferred - Genitourinary Female genitourinary: Present: deferred - Integumentary Integumentary: warm - Musculoskeletal Musculoskeletal: strength equal bilaterally - Neurologic Neurologic: moves all extremities - Labs Lab Results: Laboratory Results - last 24 hr 11/28/18 11/29/18 11/29/18 21:56 07:21 07:21 WBC 3.2 L RBC 3.83 Hgb 11.7 Hct 35.3 MCV 92 MCH 31 MCHC 33 RDW 15.1 Plt Count 261 Sodium 140 D Potassium 3.6 Chloride 109.4 H Carbon Dioxide 24 Anion Gap 10 BUN 12 Creatinine 0.5 L Estimated GFR > 60 BUN/Creatinine Ratio 24 Glucose 91 POC Glucose 115 H Calcium 7.3 L HIV 1&2 Antibody Rapid HIV P24 Antigen 03/11/29/18 11/29/18 07:48 09:07 11:14 WBC RBC Hgb Hct MCV MCH MCHC RDW Plt Count Sodium Potassium Chloride Carbon Dioxide Anion Gap BUN Creatinine Estimated GFR BUN/Creatinine Ratio Glucose POC Glucose 62 L 267 H 113 H Calcium HIV 1&2 Antibody Rapid HIV P24 Antigen 11/29/18 11/29/18 16:02 17:05 WBC RBC Hgb Hct MCV MCH MCHC RDW Plt Count Sodium Potassium Chloride Carbon Dioxide Anion Gap BUN Creatinine Estimated GFR BUN/Creatinine Ratio Glucose POC Glucose 95 Calcium HIV 1&2 Antibody Rapid Non react HIV P24 Antigen Non react Medications & Allergies - Medications Allergies/Adverse Reactions: Allergies meloxicam Adverse Reaction (Verified 11/21/18 10:45) 'POSSIBLE'- HANDS SWELLING Home Medications: Home Medications Medication Instructions Recorded Confirmed Last Taken Type Ibuprofen 600 mg PO Q6H PRN 11/21/18 11/27/18 11/26/18 15:00 History predniSONE [Deltasone] 20 mg PO DAILY 11/21/18 11/27/18 11/26/18 15:00 History Active Medications: Generic Name Dose Route Start Last Admin Trade Name Freq PRN Reason Stop Dose Admin Acetaminophen 650 mg 11/27/18 18:15 Tylenol PO Q4H PRN Pain MILD(1-3)/Fever >100.5/REDDY Enoxaparin Sodium 40 mg 11/28/18 22:00 11/28/18 22:16 Lovenox SUB-Q 40 mg QDAY@2200 ANIYAH Administration Famotidine 20 mg 11/27/18 22:00 11/29/18 09:35 Pepcid PO 20 mg BID ANIYAH Administration Hydromorphone HCl 0.5 mg 11/27/18 11:08 Dilaudid IV Q3H PRN Pain , Severe (7-10) Dextrose/Sodium Chloride 1,000 mls @ 75 mls/hr 11/28/18 06:00 11/29/18 16:43 D5ns IV 75 mls/hr DIRECT ANIYAH Administration Ceftriaxone Sodium 2 gm in 100 mls @ 200 mls/hr 11/29/18 19:00 Rocephin/Ns 2 Gm/100 Ml IV Q24HR ANIYAH Protocol Metronidazole 500 mg in 100 mls @ 100 mls/hr 11/29/18 22:00 Flagyl 500 Mg/100 Ml IV Q8HR ANIYAH Protocol Ibuprofen 800 mg 11/29/18 18:02 Motrin PO Q8H PRN Non Cardiac Pain or Temp>100.5 Insulin Human Lispro 0 unit 11/28/18 11:30 11/29/18 17:53 Humalog SUB-Q Not Given ACHS ON LICENSE OF [facility] Protocol Metoclopramide HCl 10 mg 11/27/18 18:15 Reglan IV Q6H PRN Nausea And Vomiting Ondansetron HCl 4 mg 11/27/18 18:15 11/28/18 14:07 Zofran IV 4 mg Q8H PRN Administration Nausea And Vomiting Oxycodone/Acetaminophen 1 tab 11/27/18 11:09 11/28/18 07:58 Percocet 5/325 PO 1 tab Q4H PRN Administration Pain, Moderate (4-6) Sodium Chloride 10 ml 11/27/18 22:00 11/29/18 09:37 Sodium Chloride Flush Syringe 10 Ml IV 10 ml BID ANIYAH Administration Sodium Chloride 10 ml 11/27/18 18:15 Sodium Chloride Flush Syringe 10 Ml IV PRN PRN LINE FLUSH
[2018-11-29] MEDS: ROCEPHIN/NS 2 GM/100 ML 2 GM/100 ML BAG IV SCH (21:36)
[2018-11-29] MEDS: LOVENOX SUB-Q SCH (21:40)
[2018-11-29] MEDS: FLAGYL 500 MG/100 ML 500 MG/100 ML BAG IV SCH (21:41)
[2018-11-30] MEDS: IBUPROFEN PO PRN ×2 (05:58→23:23)
[2018-11-30] MEDS: FLAGYL 500 MG/100 ML 500 MG/100 ML BAG IV SCH ×3 (05:59→23:24)
[2018-11-30 07:40] LABS: Hematocrit 34.7 % (30.3-42.9); Hemoglobin 11.6 gm/dl (10.1-14.3); Mean Corpuscular HGB Conc 34 % (30-34); Mean Corpuscular Volume 91 fl (79-97); Platelet Count 263 K/mm3 (140-440); Red Blood Count 3.79 M/mm3 (3.65-5.03); Red Cell Distribution Width 15.1 % (13.2-15.2)
[2018-11-30] MEDS: HumaLOG SUB-Q SCH ×4 (07:45→23:20)
[2018-11-30 08:01] LABS: BUN/Creatinine Ratio 18; Blood Urea Nitrogen 7 mg/dL (7-17); Calcium 6.9 mg/dL (8.4-10.2); Hemolysis Index 20
[2018-11-30] MEDS: ROCEPHIN/NS 2 GM/100 ML 2 GM/100 ML BAG IV SCH (09:37)
[2018-11-30] MEDS: SODIUM CHLORIDE FLUSH SYRINGE 10 ML IV SCH ×2 (09:37→23:25)
[2018-11-30] MEDS: PEPCID PO SCH ×2 (09:37→23:24)
[2018-11-30] MEDS: ZOFRAN IV PRN (09:45)
--- NOTE | 2018-11-30 14:14 | Progress Note ---
Assessment and Plan Assessment and plan: Patient is a 28 yo woman without chronic medical problems who was referred by Dr. Ashlee Cortes to Dr. Armijo for B symptoms. Dr. Armijo found cervical LAD and referred to Dr. Vazquez for excisional biopsy. A Bilateral Axillary Ultrasound labelled as a Breast Ultrasound in EMR on 11/13/18 was done which showed Bilaterally enlarged lymph nodes palpated by her physician. Imaging of both axillary regions demonstrated approximately 6 lymph nodes in each axilla. The smallest nodes were approximately one centimeters in size. The 2 largest lymph nodes on the right measure 2.5 cm. On the left the 2 largest measure 2.8 and 2.3 cm respectively. All of the enlarged lymph nodes appear to be abnormal w ith markedly thickened cortices but no focal mass and no significant lobulation. Impression: Nonspecific adenopathy. Patient was scheduled for outpatient biopsy but she spiked a fever and biopsy was canceled to rule out sepsis and she was directly admitted 11/27/18. * CT abd/pelvis with iv contrast IMPRESSION: Nonspecific gallbladder wall slight hyperenhancement may reflect mild cholecystitis. No CT evidence of gallstones Splenic and liver lesions statistically most likely reflecting cysts and/or hemangiomas. Given history of fever, inflammatory or infectious etiologies not entirely excluded Slight to moderate pelvic free fluid may be reactive. Consider also pelvic inflammatory disease * CT chest with iv contrast IMPRESSION: Very small right pleural effusion Small left pleural effusion layers posteriorly with adjacent slight left lower lobe consolidation. This may be compressive atelectasis and/or pneumonia. NO hilar mass or mediastinal adenopathy. /Bilateral Axillary Lymph Adenopathy: Biopsy r/o HD Lymphoma once infection ruled out, possibly on Saturday /Sirs without organ dysfunction, poa, UA unremarkable, 2v CXR unremarkable, bloo d culture and urine culture pending: stop abx, consulted ID /Suspected Lymphoma: get willson CT abd/pelvis/chest d/w Dr. Urbano, ID to look for infection and staging. Needs outpt PET scan also. /Hyperglycemia followed by hypoglycemia this morning, BG 63==>A1c 6.0: start regular diet /GI/DVt ppx History Interval history: Patient was seen and examined. Follow-up on current diagnosis fevers. Overnight uneventful. Patient denies any chest pain, shortness breath, nausea/vomiting or severe headaches. Imaging, nursing note, chart, labs and old chart reviewed. Discussed with patient. Hospitalist Physical - Physical exam Narrative exam: Gen: thin frail, NAD, Awake, lethargic, Orientated HEENT: NCAT, EOMI, PERRL, OP Clear Neck: supple, +adenopathy, no thyromegaly, no JVD CVS/Heart: RRR, normal S1S2, pulses present bilaterally Chest/Lungs: CTA B, Symmetrical chest expansion, good air entry bilaterally GI/Abdomen: soft, NTND, good bowel sounds, no guarding or rebound /Bladder: no suprapubic tenderness, no CVA or paraspinal tenderness Extermity/Skin: no c/c/e, no obvious rash MSK: FROM x 4 Neuro: CN 2-12 grossly intact, no new focal deficits Psych: calm - Constitutional Vitals: Temp Pulse Resp BP Pulse Ox 98.5 F 92 H 18 111/59 100 11/30/18 12:02 11/30/18 12:02 11/30/18 12:02 11/30/18 12:02 11/30/18 12:02 Results - Labs CBC & Chem 7: 11/30/18 06:44 11/30/18 06:44 Labs: Laboratory Last Values WBC 3.8 K/mm3 (4.5-11.0) L 11/30/18 06:44 RBC 3.79 M/mm3 (3.65-5.03) 11/30/18 06:44 Hgb 11.6 gm/dl (10.1-14.3) 11/30/18 06:44 Hct 34.7 % (30.3-42.9) 11/30/18 06:44 MCV 91 fl (79-97) 11/30/18 06:44 MCH 31 pg (28-32) 11/30/18 06:44 MCHC 34 % (30-34) 11/30/18 06:44 RDW 15.1 % (13.2-15.2) 11/30/18 06:44 Plt Count 263 K/mm3 (140-440) 11/30/18 06:44 Lymph % (Auto) 18.0 % (13.4-35.0) 11/27/18 19:10 Nash % (Auto) 2.9 % (0.0-7.3) 11/27/18 19:10 Eos % (Auto) 0.0 % (0.0-4.3) 11/27/18 19:10 Baso % (Auto) 0.4 % (0.0-1.8) 11/27/18 19:10 Lymph # 0.9 K/mm3 (1.2-5.4) L 11/27/18 19:10 Nash # 0.1 K/mm3 (0.0-0.8) 11/27/18 19:10 Eos # 0.0 K/mm3 (0.0-0.4) 11/27/18 19:10 Baso # 0.0 K/mm3 (0.0-0.1) 11/27/18 19:10 Add Manual Diff Complete 11/27/18 11:33 Total Counted 100 11/27/18 11:33 Seg Neutrophils % 78.7 % (40.0-70.0) H 11/27/18 19:10 Seg Neuts % (Manual) 81.0 % (40.0-70.0) H 11/27/18 11:33 Band Neutrophils % 9.0 % 11/27/18 11:33 Lymphocytes % (Manual) 6.0 % (13.4-35.0) L 11/27/18 11:33 Reactive Lymphs % (Man) 0 % 11/27/18 11:33 Monocytes % (Manual) 2.0 % (0.0-7.3) 11/27/18 11:33 Eosinophils % (Manual) 0 % (0.0-4.3) 11/27/18 11:33 Basophils % (Manual) 0 % (0.0-1.8) 11/27/18 11:33 Metamyelocytes % 2.0 % 11/27/18 11:33 Myelocytes % 0 % 11/27/18 11:33 Promyelocytes % 0 % 11/27/18 11:33 Blast Cells % 0 % 11/27/18 11:33 Nucleated RBC % Not Reportable 11/27/18 11:33 Seg Neutrophils # 4.0 K/mm3 (1.8-7.7) 11/27/18 19:10 Seg Neutrophils # Man 5.2 K/mm3 (1.8-7.7) 11/27/18 11:33 Band Neutrophils # 0.6 K/mm3 11/27/18 11:33 Lymphocytes # (Manual) 0.4 K/mm3 (1.2-5.4) L 11/27/18 11:33 Abs React Lymphs (Man) 0.0 K/mm3 11/27/18 11:33 Monocytes # (Manual) 0.1 K/mm3 (0.0-0.8) 11/27/18 11:33 Eosinophils # (Manual) 0.0 K/mm3 (0.0-0.4) 11/27/18 11:33 Basophils # (Manual) 0.0 K/mm3 (0.0-0.1) 11/27/18 11:33 Metamyelocytes # 0.1 K/mm3 11/27/18 11:33 Myelocytes # 0.0 K/mm3 11/27/18 11:33 Promyelocytes # 0.0 K/mm3 11/27/18 11:33 Blast Cells # 0.0 K/mm3 11/27/18 11:33 WBC Morphology Not Reportable 11/27/18 11:33 Hypersegmented Neuts Not Reportable 11/27/18 11:33 Hyposegmented Neuts Not Reportable 11/27/18 11:33 Hypogranular Neuts Not Reportable 11/27/18 11:33 Smudge Cells Not Reportable 11/27/18 11:33 Toxic Granulation Not Reportable 11/27/18 11:33 Toxic Vacuolation Not Reportable 11/27/18 11:33 Dohle Bodies Not Reportable 11/27/18 11:33 Pelger-Huet Anomaly Not Reportable 11/27/18 11:33 Padma Rods Not Reportable 11/27/18 11:33 Platelet Estimate Consistent w auto 11/27/18 11:33 Clumped Platelets Not Reportable 11/27/18 11:33 Plt Clumps, EDTA Not Reportable 11/27/18 11:33 Large Platelets Not Reportable 11/27/18 11:33 Giant Platelets Not Reportable 11/27/18 11:33 Platelet Satelliting Not Reportable 11/27/18 11:33 Plt Morphology Comment Not Reportable 11/27/18 11:33 RBC Morphology Not Reportable 11/27/18 11:33 Dimorphic RBCs Not Reportable 11/27/18 11:33 Polychromasia Not Reportable 11/27/18 11:33 Hypochromasia Not Reportable 11/27/18 11:33 Poikilocytosis Few 11/27/18 11:33 Anisocytosis Not Reportable 11/27/18 11:33 Microcytosis Not Reportable 11/27/18 11:33 Macrocytosis Not Reportable 11/27/18 11:33 Spherocytes Not Reportable 11/27/18 11:33 Pappenheimer Bodies Not Reportable 11/27/18 11:33 Sickle Cells Not Reportable 11/27/18 11:33 Target Cells Not Reportable 11/27/18 11:33 Tear Drop Cells Not Reportable 11/27/18 11:33 Ovalocytes Few 11/27/18 11:33 Helmet Cells Not Reportable 11/27/18 11:33 [place] Bodies Not Reportable 11/27/18 11:33 [place] Rings Not Reportable 11/27/18 11:33 Baldev Cells Not Reportable 11/27/18 11:33 Bite Cells Not Reportable 11/27/18 11:33 Crenated Cell Not Reportable 11/27/18 11:33 Elliptocytes Not Reportable 11/27/18 11:33 Acanthocytes (Spur) Not Reportable 11/27/18 11:33 Rouleaux Not Reportable 11/27/18 11:33 Hemoglobin C Crystals Not Reportable 11/27/18 11:33 Schistocytes Not Reportable 11/27/18 11:33 Malaria parasites Not Reportable 11/27/18 11:33 ESR 34 mm/Hr (0-20) 11/27/18 11:33 Marbin Bodies Not Reportable 11/27/18 11:33 Hem Pathologist Commnt No 11/27/18 11:33 Sodium 134 mmol/L (137-145) L 11/30/18 06:44 Potassium 3.7 mmol/L (3.6-5.0) 11/30/18 06:44 Chloride 101.3 mmol/L (98-107) 11/30/18 06:44 Carbon Dioxide 24 mmol/L (22-30) 11/30/18 06:44 Anion Gap 12 mmol/L 11/30/18 06:44 BUN 7 mg/dL (7-17) 11/30/18 06:44 Creatinine 0.4 mg/dL (0.7-1.2) L 11/30/18 06:44 Estimated GFR > 60 ml/min 11/30/18 06:44 BUN/Creatinine Ratio 18 % 11/30/18 06:44 Glucose 96 mg/dL (65-100) 11/30/18 06:44 POC Glucose 86 (70-105) 11/30/18 11:26 Hemoglobin A1c 6.0 % (4-6) 11/27/18 19:10 Calcium 6.9 mg/dL (8.4-10.2) L 11/30/18 06:44 Total Bilirubin 0.40 mg/dL (0.1-1.2) 11/27/18 19:10 AST 137 units/L (5-40) H 11/27/18 19:10 ALT 55 units/L (7-56) 11/27/18 19:10 Alkaline Phosphatase 34 units/L (35-129) L 11/27/18 19:10 Total Protein 5.7 g/dL (6.3-8.2) L 11/27/18 19:10 Albumin 2.2 g/dL (3.9-5) L 11/27/18 19:10 Albumin/Globulin Ratio 0.6 % 11/27/18 19:10 TSH 0.281 mlU/mL (0.270-4.200) 11/27/18 11:33 Urine Color Latisha (Yellow) 11/28/18 13:30 Urine Turbidity Clear (Clear) 11/28/18 13:30 Urine pH 5.0 (5.0-7.0) 11/28/18 13:30 Ur Specific [place] 1.041 (1.003-1.030) H 11/28/18 13:30 Urine Protein 30 mg/dl mg/dL (Negative) 11/28/18 13:30 Urine Glucose (UA) Neg mg/dL (Negative) 11/28/18 13:30 Urine Ketones Neg mg/dL (Negative) 11/28/18 13:30 Urine Blood Neg (Negative) 11/28/18 13:30 Urine Nitrite Neg (Negative) 11/28/18 13:30 Urine Bilirubin Neg (Negative) 11/28/18 13:30 Urine Urobilinogen 2.0 mg/dL (<2.0) 11/28/18 13:30 Ur Leukocyte Esterase Neg (Negative) 11/28/18 13:30 Urine WBC (Auto) 6.0 /HPF (0.0-6.0) 11/28/18 13:30 Urine RBC (Auto) 4.0 /HPF (0.0-6.0) 11/28/18 13:30 U Epithel Cells (Auto) 3.0 /HPF (0-13.0) 11/28/18 13:30 Urine Mucus Few /HPF 11/28/18 13:30 Hepatitis A IgM Ab Non-reactive (NonReactive) 11/28/18 06:16 Hep Bs Antigen Non-reactive (Negative) 11/28/18 06:16 Hep B Core IgM Ab Non-reactive (NonReactive) 11/28/18 06:16 Hepatitis C Antibody Non-reactive (NonReactive) 11/28/18 06:16 HIV 1&2 Antibody Rapid Non react (Non React) 11/29/18 16:02 HIV P24 Antigen Non react (Non React) 11/29/18 16:02 Active Medications - Current Medications Current Medications: Generic Name Dose Route Start Last Admin Trade Name Marckq PRN Reason Stop Dose Admin Acetaminophen 650 mg 11/27/18 18:15 11/29/18 18:10 Tylenol PO 650 mg Q4H PRN Administration Pain MILD(1-3)/Fever >100.5/REDDY Enoxaparin Sodium 40 mg 11/28/18 22:00 11/29/18 21:40 Lovenox SUB-Q 40 mg QDAY@2200 ANIYAH Administration Famotidine 20 mg 11/27/18 22:00 11/30/18 09:37 Pepcid PO 20 mg BID ANIYAH Administration Hydromorphone HCl 0.5 mg 11/27/18 11:08 Dilaudid IV Q3H PRN Pain , Severe (7-10) Dextrose/Sodium Chloride 1,000 mls @ 75 mls/hr 11/28/18 06:00 11/29/18 16:43 D5ns IV 75 mls/hr DIRECT ANIYAH Administration Ceftriaxone Sodium 2 gm in 100 mls @ 200 mls/hr 11/29/18 19:00 11/30/18 09:37 Rocephin/Ns 2 Gm/100 Ml IV 200 mls/hr Q24HR ANIYAH Administration Protocol Metronidazole 500 mg in 100 mls @ 100 mls/hr 11/29/18 22:00 11/30/18 05:59 Flagyl 500 Mg/100 Ml IV 100 mls/hr Q8HR ANIYAH Administration Protocol Cefazolin Sodium 2 gm in 20 mls @ 80 mls/hr 12/01/18 06:00 Ancef/Sterile Water 2 Gm/20 Ml IV 12/01/18 23:59 PREOP NR Protocol Ibuprofen 800 mg 11/29/18 18:02 11/30/18 05:58 Motrin PO 800 mg Q8H PRN Administration Non Cardiac Pain or Temp>100.5 Insulin Human Lispro 0 unit 11/28/18 11:30 11/30/18 12:57 Humalog SUB-Q Not Given ACHS ANIYAH Protocol Metoclopramide HCl 10 mg 11/27/18 18:15 Reglan IV Q6H PRN Nausea And Vomiting Ondansetron HCl 4 mg 11/27/18 18:15 11/30/18 09:45 Zofran IV 4 mg Q8H PRN Administration Nausea And Vomiting Oxycodone/Acetaminophen 1 tab 11/27/18 11:09 11/28/18 07:58 Percocet 5/325 PO 1 tab Q4H PRN Administration Pain, Moderate (4-6) Sodium Chloride 10 ml 11/27/18 22:00 11/30/18 09:37 Sodium Chloride Flush Syringe 10 Ml IV Not Given BID [facility] Sodium Chloride 10 ml 11/27/18 18:15 Sodium Chloride Flush Syringe 10 Ml IV PRN PRN LINE FLUSH
[2018-11-30] MEDS: LOVENOX SUB-Q SCH (23:25)
[2018-12-01] MEDS: FLAGYL 500 MG/100 ML 500 MG/100 ML BAG IV SCH ×3 (05:02→22:37)
[2018-12-01 05:08] LABS: HCG Qualitative,Urine Negative (Negative)
[2018-12-01] MEDS ORDERED: ANCEF/STERILE WATER 2 GM/20 ML 2 GM/20 ML SYRINGE IV NR (06:00)
[2018-12-01 06:32] LABS: Hematocrit 36.6 % (30.3-42.9); Hemoglobin 12.1 gm/dl (10.1-14.3); Mean Corpuscular HGB Conc 33 % (30-34); Mean Corpuscular Volume 92 fl (79-97); Platelet Count 219 K/mm3 (140-440); Red Blood Count 3.99 M/mm3 (3.65-5.03); Red Cell Distribution Width 15.6 % (13.2-15.2)
[2018-12-01 06:48] LABS: BUN/Creatinine Ratio 13; Blood Urea Nitrogen 5 mg/dL (7-17); Calcium 7.1 mg/dL (8.4-10.2); Hemolysis Index 30
--- NOTE | 2018-12-01 07:48 | Hem/Onc Progress Note ---
Assessment and Plan B/l axilla lymphadenopathy. Etiology is unclear at this time. This could be a viral etiology or an immune cause. neoplasm is a differential. The patient had abnormal myelocyte; however, by the time I had evaluated her 10/22/2018 smear and flow cytometry were normal. This could have been a transient phenomenon. Abnormal LFTs. We will follow the trend. History of fever, being admitted for evaluation. 11/28 d/w dr vazquez - ID consult for fever CT CAP planned LN bx planned - once no fever 11/29 - pt had CT CAP - no LNs - ? hemangioma - liver - spleen d/w pts mother and father 12/01 edema - d/w dr masterson reg fluids fever - d/w dr Vazquez d/w Id team at this time the LN bx wll help - Patient Problems (1) Lymphadenopathy Current Visit: Yes Status: Acute Subjective Date of service: 12/01/18 Principal diagnosis: b/l ban LN Interval history: edema Objective - Constitutional Vitals: Last Vital Signs Temp 98.3 F 12/01/18 04:42 Pulse 116 H 12/01/18 04:42 Resp 18 12/01/18 04:42 BP 124/79 12/01/18 04:42 Pulse Ox 94 12/01/18 04:42 Pain Intensity (0-10): denies any pain General appearance: no acute distress Performance status: 3-limited selfcare - EENT Eyes: EOM intact ENT: clear oral mucosa Lymph node exam: negative cervical - Neck Neck: normal ROM - Respiratory Respiratory effort: Positive: normal Respiratory: bilateral: CTA (anteriorly) - Cardiovascular Heart Sounds: Present: S1 & S2 Extremity abnormal: edema - Gastrointestinal General gastrointestinal: Present: soft, non-tender Rectal Exam: deferred - Genitourinary Female genitourinary: Present: deferred - Integumentary Integumentary: warm - Musculoskeletal Musculoskeletal: strength equal bilaterally - Neurologic Neurologic: moves all extremities - Labs Lab Results: Laboratory Results - last 24 hr 11/30/18 11/30/18 11/30/18 06:44 07:29 11:26 WBC RBC Hgb Hct MCV MCH MCHC RDW Plt Count Sodium 134 L Potassium 3.7 Chloride 101.3 Carbon Dioxide 24 Anion Gap 12 BUN 7 Creatinine 0.4 L Estimated GFR > 60 BUN/Creatinine Ratio 18 Glucose 96 POC Glucose 68 L 86 Calcium 6.9 L Urine HCG, Qual 11/30/18 11/30/18 12/01/18 16:29 23:04 04:45 WBC RBC Hgb Hct MCV MCH MCHC RDW Plt Count Sodium Potassium Chloride Carbon Dioxide Anion Gap BUN Creatinine Estimated GFR BUN/Creatinine Ratio Glucose POC Glucose 112 H 116 H Calcium Urine HCG, Qual Negative 12/01/18 12/01/18 05:15 05:15 WBC 4.8 RBC 3.99 Hgb 12.1 Hct 36.6 MCV 92 MCH 30 MCHC 33 RDW 15.6 H Plt Count 219 Sodium 138 Potassium 3.6 Chloride 106.5 Carbon Dioxide 23 Anion Gap 12 BUN 5 L Creatinine 0.4 L Estimated GFR > 60 BUN/Creatinine Ratio 13 Glucose 98 POC Glucose Calcium 7.1 L Urine HCG, Qual Medications & Allergies - Medications Allergies/Adverse Reactions: Allergies meloxicam Adverse Reaction (Verified 11/21/18 10:45) 'POSSIBLE'- HANDS SWELLING Home Medications: Home Medications Medication Instructions Recorded Confirmed Last Taken Type Ibuprofen 600 mg PO Q6H PRN 11/21/18 11/27/18 11/26/18 15:00 History predniSONE [Deltasone] 20 mg PO DAILY 11/21/18 11/27/18 11/26/18 15:00 History Active Medications: Generic Name Dose Route Start Last Admin Trade Name Yovanny PRN Reason Stop Dose Admin Acetaminophen 650 mg 11/27/18 18:15 11/29/18 18:10 Tylenol PO 650 mg Q4H PRN Administration Pain MILD(1-3)/Fever >100.5/REDDY Enoxaparin Sodium 40 mg 11/28/18 22:00 11/30/18 23:25 Lovenox SUB-Q Not Given QDAY@2200 ANIYAH Famotidine 20 mg 11/27/18 22:00 11/30/18 23:24 Pepcid PO 20 mg BID ANIYAH Administration Hydromorphone HCl 0.5 mg 11/27/18 11:08 Dilaudid IV Q3H PRN Pain , Severe (7-10) Dextrose/Sodium Chloride 1,000 mls @ 75 mls/hr 11/28/18 06:00 11/29/18 16:43 D5ns IV 75 mls/hr DIRECT ANIYAH Administration Ceftriaxone Sodium 2 gm in 100 mls @ 200 mls/hr 11/29/18 19:00 11/30/18 09:37 Rocephin/Ns 2 Gm/100 Ml IV 200 mls/hr Q24HR ANIYAH Administration Protocol Metronidazole 500 mg in 100 mls @ 100 mls/hr 11/29/18 22:00 12/01/18 05:02 Flagyl 500 Mg/100 Ml IV 100 mls/hr Q8HR ANIAYH Administration Protocol Cefazolin Sodium 2 gm in 20 mls @ 80 mls/hr 12/01/18 06:00 Ancef/Sterile Water 2 Gm/20 Ml IV 12/01/18 23:59 PREOP NR Protocol Ibuprofen 800 mg 11/29/18 18:02 11/30/18 23:23 Motrin PO 800 mg Q8H PRN Administration Non Cardiac Pain or Temp>100.5 Insulin Human Lispro 0 unit 11/28/18 11:30 11/30/18 23:20 Humalog SUB-Q Not Given ACHS ANIYAH Protocol Metoclopramide HCl 10 mg 11/27/18 18:15 Reglan IV Q6H PRN Nausea And Vomiting Ondansetron HCl 4 mg 11/27/18 18:15 11/30/18 09:45 Zofran IV 4 mg Q8H PRN Administration Nausea And Vomiting Oxycodone/Acetaminophen 1 tab 11/27/18 11:09 11/28/18 07:58 Percocet 5/325 PO 1 tab Q4H PRN Administration Pain, Moderate (4-6) Sodium Chloride 10 ml 11/27/18 22:00 11/30/18 23:25 Sodium Chloride Flush Syringe 10 Ml IV Not Given BID ANIYAH Sodium Chloride 10 ml 11/27/18 18:15 Sodium Chloride Flush Syringe 10 Ml IV PRN PRN LINE FLUSH
--- NOTE | 2018-12-01 08:10 | Progress Note ---
Assessment and Plan Assessment and plan: Patient is a 28 yo woman without chronic medical problems who was referred by Dr. Ashlee Cortes to Dr. Armijo for B symptoms. Dr. Armijo found cervical LAD and referred to Dr. Vazquez for excisional biopsy. A Bilateral Axillary Ultrasound labelled as a Breast Ultrasound in EMR on 11/13/18 was done which showed Bilaterally enlarged lymph nodes palpated by her physician. Imaging of both axillary regions demonstrated approximately 6 lymph nodes in each axilla. The smallest nodes were approximately one centimeters in size. The 2 largest lymph nodes on the right measure 2.5 cm. On the left the 2 largest measure 2.8 and 2.3 cm respectively. All of the enlarged lymph nodes appear to be abnormal w ith markedly thickened cortices but no focal mass and no significant lobulation. Impression: Nonspecific adenopathy. Patient was scheduled for outpatient biopsy but she spiked a fever and biopsy was canceled to rule out sepsis and she was directly admitted 11/27/18. * CT abd/pelvis with iv contrast IMPRESSION: Nonspecific gallbladder wall slight hyperenhancement may reflect mild cholecystitis. No CT evidence of gallstones Splenic and liver lesions statistically most likely reflecting cysts and/or hemangiomas. Given history of fever, inflammatory or infectious etiologies not entirely excluded Slight to moderate pelvic free fluid may be reactive. Consider also pelvic inflammatory disease * CT chest with iv contrast IMPRESSION: Very small right pleural effusion Small left pleural effusion layers posteriorly with adjacent slight left lower lobe consolidation. This may be compressive atelectasis and/or pneumonia. NO hilar mass or mediastinal adenopathy. /Bilateral Axillary Lymph Adenopathy: Biopsy r/o HD Lymphoma once afebrile, hopefully tomorrow /Sirs without organ dysfunction, poa, UA unremarkable, 2v CXR unremarkable, blood culture and urine culture pending: stop abx, consulted ID /Suspected Lymphoma: get willson CT abd/pelvis/chest d/w Dr. Urbano, ID to look for infection and staging. Needs outpt PET scan also. /Hyperglycemia followed by hypoglycemia this morning, BG 63==>A1c 6.0: start regular diet, on ssi for the hypoglycemia /GI/DVt ppx History Interval history: Patient was seen and examined. Follow-up on current diagnosis fevers. Overnight uneventful. Patient denies any chest pain, shortness breath, nausea/vomiting or severe headaches. Imaging, nursing note, chart, labs and old chart reviewed. Discussed with patient. Hospitalist Physical - Physical exam Narrative exam: Gen: thin frail, NAD, Awake, lethargic, Orientated HEENT: NCAT, EOMI, PERRL, OP Clear Neck: supple, +adenopathy, no thyromegaly, no JVD CVS/Heart: RRR, normal S1S2, pulses present bilaterally Chest/Lungs: CTA B, Symmetrical chest expansion, good air entry bilaterally GI/Abdomen: soft, NTND, good bowel sounds, no guarding or rebound /Bladder: no suprapubic tenderness, no CVA or paraspinal tenderness Extermity/Skin: no c/c, gen. swelling, no obvious rash MSK: FROM x 4 Neuro: CN 2-12 grossly intact, no new focal deficits Psych: calm - Constitutional Vitals: Temp Pulse Resp BP Pulse Ox 98.3 F 116 H 18 124/79 94 12/01/18 04:42 12/01/18 04:42 12/01/18 04:42 12/01/18 04:42 12/01/18 04:42 Results - Labs CBC & Chem 7: 12/01/18 05:15 12/01/18 05:15 Labs: Laboratory Last Values WBC 4.8 K/mm3 (4.5-11.0) 12/01/18 05:15 RBC 3.99 M/mm3 (3.65-5.03) 12/01/18 05:15 Hgb 12.1 gm/dl (10.1-14.3) 12/01/18 05:15 Hct 36.6 % (30.3-42.9) 12/01/18 05:15 MCV 92 fl (79-97) 12/01/18 05:15 MCH 30 pg (28-32) 12/01/18 05:15 MCHC 33 % (30-34) 12/01/18 05:15 RDW 15.6 % (13.2-15.2) H 12/01/18 05:15 Plt Count 219 K/mm3 (140-440) 12/01/18 05:15 Lymph % (Auto) 18.0 % (13.4-35.0) 11/27/18 19:10 [place] % (Auto) 2.9 % (0.0-7.3) 11/27/18 19:10 Eos % (Auto) 0.0 % (0.0-4.3) 11/27/18 19:10 Baso % (Auto) 0.4 % (0.0-1.8) 11/27/18 19:10 Lymph # 0.9 K/mm3 (1.2-5.4) L 11/27/18 19:10 [place] # 0.1 K/mm3 (0.0-0.8) 11/27/18 19:10 Eos # 0.0 K/mm3 (0.0-0.4) 11/27/18 19:10 Baso # 0.0 K/mm3 (0.0-0.1) 11/27/18 19:10 Add Manual Diff Complete 11/27/18 11:33 Total Counted 100 11/27/18 11:33 Seg Neutrophils % 78.7 % (40.0-70.0) H 11/27/18 19:10 Seg Neuts % (Manual) 81.0 % (40.0-70.0) H 11/27/18 11:33 Band Neutrophils % 9.0 % 11/27/18 11:33 Lymphocytes % (Manual) 6.0 % (13.4-35.0) L 11/27/18 11:33 Reactive Lymphs % (Man) 0 % 11/27/18 11:33 Monocytes % (Manual) 2.0 % (0.0-7.3) 11/27/18 11:33 Eosinophils % (Manual) 0 % (0.0-4.3) 11/27/18 11:33 Basophils % (Manual) 0 % (0.0-1.8) 11/27/18 11:33 Metamyelocytes % 2.0 % 11/27/18 11:33 Myelocytes % 0 % 11/27/18 11:33 Promyelocytes % 0 % 11/27/18 11:33 Blast Cells % 0 % 11/27/18 11:33 Nucleated RBC % Not Reportable 11/27/18 11:33 Seg Neutrophils # 4.0 K/mm3 (1.8-7.7) 11/27/18 19:10 Seg Neutrophils # Man 5.2 K/mm3 (1.8-7.7) 11/27/18 11:33 Band Neutrophils # 0.6 K/mm3 11/27/18 11:33 Lymphocytes # (Manual) 0.4 K/mm3 (1.2-5.4) L 11/27/18 11:33 Abs React Lymphs (Man) 0.0 K/mm3 11/27/18 11:33 Monocytes # (Manual) 0.1 K/mm3 (0.0-0.8) 11/27/18 11:33 Eosinophils # (Manual) 0.0 K/mm3 (0.0-0.4) 11/27/18 11:33 Basophils # (Manual) 0.0 K/mm3 (0.0-0.1) 11/27/18 11:33 Metamyelocytes # 0.1 K/mm3 11/27/18 11:33 Myelocytes # 0.0 K/mm3 11/27/18 11:33 Promyelocytes # 0.0 K/mm3 11/27/18 11:33 Blast Cells # 0.0 K/mm3 11/27/18 11:33 WBC Morphology Not Reportable 11/27/18 11:33 Hypersegmented Neuts Not Reportable 11/27/18 11:33 Hyposegmented Neuts Not Reportable 11/27/18 11:33 Hypogranular Neuts Not Reportable 11/27/18 11:33 Smudge Cells Not Reportable 11/27/18 11:33 Toxic Granulation Not Reportable 11/27/18 11:33 Toxic Vacuolation Not Reportable 11/27/18 11:33 Dohle Bodies Not Reportable 11/27/18 11:33 Pelger-Huet Anomaly Not Reportable 11/27/18 11:33 Padma Rods Not Reportable 11/27/18 11:33 Platelet Estimate Consistent w auto 11/27/18 11:33 Clumped Platelets Not Reportable 11/27/18 11:33 Plt Clumps, EDTA Not Reportable 11/27/18 11:33 Large Platelets Not Reportable 11/27/18 11:33 Giant Platelets Not Reportable 11/27/18 11:33 Platelet Satelliting Not Reportable 11/27/18 11:33 Plt Morphology Comment Not Reportable 11/27/18 11:33 RBC Morphology Not Reportable 11/27/18 11:33 Dimorphic RBCs Not Reportable 11/27/18 11:33 Polychromasia Not Reportable 11/27/18 11:33 Hypochromasia Not Reportable 11/27/18 11:33 Poikilocytosis Few 11/27/18 11:33 Anisocytosis Not Reportable 11/27/18 11:33 Microcytosis Not Reportable 11/27/18 11:33 Macrocytosis Not Reportable 11/27/18 11:33 Spherocytes Not Reportable 11/27/18 11:33 Pappenheimer Bodies Not Reportable 11/27/18 11:33 Sickle Cells Not Reportable 11/27/18 11:33 Target Cells Not Reportable 11/27/18 11:33 Tear Drop Cells Not Reportable 11/27/18 11:33 Ovalocytes Few 11/27/18 11:33 Helmet Cells Not Reportable 11/27/18 11:33 [place] Bodies Not Reportable 11/27/18 11:33 [place] Rings Not Reportable 11/27/18 11:33 Baldev Cells Not Reportable 11/27/18 11:33 Bite Cells Not Reportable 11/27/18 11:33 Crenated Cell Not Reportable 11/27/18 11:33 Elliptocytes Not Reportable 11/27/18 11:33 Acanthocytes (Spur) Not Reportable 11/27/18 11:33 Rouleaux Not Reportable 11/27/18 11:33 Hemoglobin C Crystals Not Reportable 11/27/18 11:33 Schistocytes Not Reportable 11/27/18 11:33 Malaria parasites Not Reportable 11/27/18 11:33 ESR 34 mm/Hr (0-20) 11/27/18 11:33 Marbin Bodies Not Reportable 11/27/18 11:33 Hem Pathologist Commnt No 11/27/18 11:33 Sodium 138 mmol/L (137-145) 12/01/18 05:15 Potassium 3.6 mmol/L (3.6-5.0) 12/01/18 05:15 Chloride 106.5 mmol/L (98-107) 12/01/18 05:15 Carbon Dioxide 23 mmol/L (22-30) 12/01/18 05:15 Anion Gap 12 mmol/L 12/01/18 05:15 BUN 5 mg/dL (7-17) L 12/01/18 05:15 Creatinine 0.4 mg/dL (0.7-1.2) L 12/01/18 05:15 Estimated GFR > 60 ml/min 12/01/18 05:15 BUN/Creatinine Ratio 13 % 12/01/18 05:15 Glucose 98 mg/dL (65-100) 12/01/18 05:15 POC Glucose 116 (70-105) H 11/30/18 23:04 Hemoglobin A1c 6.0 % (4-6) 11/27/18 19:10 Calcium 7.1 mg/dL (8.4-10.2) L 12/01/18 05:15 Total Bilirubin 0.40 mg/dL (0.1-1.2) 11/27/18 19:10 AST 137 units/L (5-40) H 11/27/18 19:10 ALT 55 units/L (7-56) 11/27/18 19:10 Alkaline Phosphatase 34 units/L (35-129) L 11/27/18 19:10 Total Protein 5.7 g/dL (6.3-8.2) L 11/27/18 19:10 Albumin 2.2 g/dL (3.9-5) L 11/27/18 19:10 Albumin/Globulin Ratio 0.6 % 11/27/18 19:10 TSH 0.281 mlU/mL (0.270-4.200) 11/27/18 11:33 Urine Color [place] (Yellow) 11/28/18 13:30 Urine Turbidity Clear (Clear) 11/28/18 13:30 Urine pH 5.0 (5.0-7.0) 11/28/18 13:30 Ur Specific [place] 1.041 (1.003-1.030) H 11/28/18 13:30 Urine Protein 30 mg/dl mg/dL (Negative) 11/28/18 13:30 Urine Glucose (UA) Neg mg/dL (Negative) 11/28/18 13:30 Urine Ketones Neg mg/dL (Negative) 11/28/18 13:30 Urine Blood Neg (Negative) 11/28/18 13:30 Urine Nitrite Neg (Negative) 11/28/18 13:30 Urine Bilirubin Neg (Negative) 11/28/18 13:30 Urine Urobilinogen 2.0 mg/dL (<2.0) 11/28/18 13:30 Ur Leukocyte Esterase Neg (Negative) 11/28/18 13:30 Urine WBC (Auto) 6.0 /HPF (0.0-6.0) 11/28/18 13:30 Urine RBC (Auto) 4.0 /HPF (0.0-6.0) 11/28/18 13:30 U Epithel Cells (Auto) 3.0 /HPF (0-13.0) 11/28/18 13:30 Urine Mucus Few /HPF 11/28/18 13:30 Urine HCG, Qual Negative (Negative) 12/01/18 04:45 Hepatitis A IgM Ab Non-reactive (NonReactive) 11/28/18 06:16 Hep Bs Antigen Non-reactive (Negative) 11/28/18 06:16 Hep B Core IgM Ab Non-reactive (NonReactive) 11/28/18 06:16 Hepatitis C Antibody Non-reactive (NonReactive) 11/28/18 06:16 HIV 1&2 Antibody Rapid Non react (Non React) 11/29/18 16:02 HIV P24 Antigen Non react (Non React) 11/29/18 16:02 Active Medications - Current Medications Current Medications: Generic Name Dose Route Start Last Admin Trade Name Freq PRN Reason Stop Dose Admin Acetaminophen 650 mg 11/27/18 18:15 11/29/18 18:10 Tylenol PO 650 mg Q4H PRN Administration Pain MILD(1-3)/Fever >100.5/REDDY Enoxaparin Sodium 40 mg 11/28/18 22:00 11/30/18 23:25 Lovenox SUB-Q Not Given QDAY@2200 ANIYAH Famotidine 20 mg 11/27/18 22:00 11/30/18 23:24 Pepcid PO 20 mg BID ANIYAH Administration Hydromorphone HCl 0.5 mg 11/27/18 11:08 Dilaudid IV Q3H PRN Pain , Severe (7-10) Ceftriaxone Sodium 2 gm in 100 mls @ 200 mls/hr 11/29/18 19:00 11/30/18 09:37 Rocephin/Ns 2 Gm/100 Ml IV 200 mls/hr Q24HR ANIYAH Administration Protocol Metronidazole 500 mg in 100 mls @ 100 mls/hr 11/29/18 22:00 12/01/18 05:02 Flagyl 500 Mg/100 Ml IV 100 mls/hr Q8HR ANIYAH Administration Protocol Cefazolin Sodium 2 gm in 20 mls @ 80 mls/hr 12/01/18 06:00 Ancef/Sterile Water 2 Gm/20 Ml IV 12/01/18 23:59 PREOP NR Protocol Ibuprofen 800 mg 11/29/18 18:02 11/30/18 23:23 Motrin PO 800 mg Q8H PRN Administration Non Cardiac Pain or Temp>100.5 Insulin Human Lispro 0 unit 11/28/18 11:30 11/30/18 23:20 Humalog SUB-Q Not Given ACHS ANIYAH Protocol Metoclopramide HCl 10 mg 11/27/18 18:15 Reglan IV Q6H PRN Nausea And Vomiting Ondansetron HCl 4 mg 11/27/18 18:15 11/30/18 09:45 Zofran IV 4 mg Q8H PRN Administration Nausea And Vomiting Oxycodone/Acetaminophen 1 tab 11/27/18 11:09 11/28/18 07:58 Percocet 5/325 PO 1 tab Q4H PRN Administration Pain, Moderate (4-6) Sodium Chloride 10 ml 11/27/18 22:00 11/30/18 23:25 Sodium Chloride Flush Syringe 10 Ml IV Not Given BID ANIYAH Sodium Chloride 10 ml 11/27/18 18:15 Sodium Chloride Flush Syringe 10 Ml IV PRN PRN LINE FLUSH
[2018-12-01] MEDS: HumaLOG SUB-Q SCH ×4 (08:25→22:31)
--- NOTE | 2018-12-01 09:54 | Progress Note ---
Assessment and Plan Cultures: Blood culture 11/27/2018 no growth to date Urine culture 11/27/2018: no growth to date Assessment: 28 y/o female with no medical history; admitted on 11/27/2017 for elective lymph node biopsy. She reported she was seen by her PCP 2 months before admission and noted to have bilateral axilary LNs. In the preop area, she was found to be tachycardic, lethargic, and febrile. Surgery was cancelled and patient admitted to hospitalist service for evaluation of fever. She reports 2-week history of on/off fever, chills, malaise: 1) FUO: on and off fevers continuing, associated with bilateral axillary LNs: unclear source. Broad DDx. acute mononucleosis (EBV/CMV) +/- HIV +/- cat scratch disease +/- autoimmune +/- malignancy. Blood culture 11/27/2018 no growth today. UA neg. CXR neg. HIV test a month ago neg per patient.HAV, HBV and HCV nonreactive. HIV nonreactive -CT Chest: Very small right pleural effusion Small left pleural effusion layers posteriorly with adjacent slight left lower lobe consolidation. This may be compressive atelectasis and/or pneumonia. No hilar mass or mediastinal adenopathy. -CT Abdomen and Pelvis: Nonspecific gallbladder wall slight hyperenhancement may reflect mild cholecystitis. No CT evidence of gallstones Splenic and liver lesions statistically most likely reflecting cysts and/or hemangiomas. Slight to moderate pelvic free fluid may be reactive. Consider also pelvic inflammatory disease 2) Elevated LFTs: unclear etiology ? acute mononucleosis (EBV/CMV) +/- HIV. Viral hepatitis panel all negative. Recommendations: - follow-up blood cultures, urine culture - CMV, EBV, CEASAR, C3/C4, CRP - monitor off antibiotics -Ok to proceed with lymph node biopsy from ID standpoint. -Please send LN sample for histopathology and send separate sample for fungal, AFB and aerobic cultures d/w Dr. Jaquan Santos, [employer] [facility] M: [id number] O:[phone] Subjective Date of service: 12/01/18 Principal diagnosis: b/l ban LN Interval history: Patient seen and examined. Asleep, easily arousable. Denies pain or SOB. +fevers. Objective - Exam Narrative Exam: General appearance: Asleep, easily arousable. Eyes: anicteric sclerae, moist conjunctivae; no lid-lag; PERRLA HENT: Atraumatic; oropharynx clear with moist mucous membranes and no mucosal ulcerations/no oral thrush; normal hard and soft palate. Normal external ears. Neck: Trachea midline; supple, no thyromegaly or lymphadenopathy Lungs: CTA, with normal respiratory effort and no intercostal retractions CV: RRR, no murmurs Abdomen: Soft, non-tender; no masses or hepatosplenomegaly Extremities: No peripheral edema. [place] axillary small LNs Skin: Normal temperature, turgor and texture; no rash, ulcers or subcutaneous nodules Psych: Affect: flat. Neuro: alert and oriented x 3. Moving all extermities - Constitutional Vitals: Vital Signs Temp Pulse Resp BP Pulse Ox 98.3 F 116 H 18 124/79 94 12/01/18 04:42 12/01/18 04:42 12/01/18 04:42 12/01/18 04:42 12/01/18 04:42 Temperature -Last 24 Hours Temperature 98.3 F Temperature 100.8 F Temperature 98.0 F Temperature 98.5 F - Labs CBC & Chem 7: 12/01/18 05:15 12/01/18 05:15 Labs: Abnormal lab results 11/30/18 11/30/18 11/30/18 Range/Units 07:29 16:29 23:04 RDW (13.2-15.2) % BUN (7-17) mg/dL Creatinine (0.7-1.2) mg/dL POC Glucose 68 L 112 H 116 H (70-105) Calcium (8.4-10.2) mg/dL 12/01/18 12/01/18 Range/Units 05:15 05:15 RDW 15.6 H (13.2-15.2) % BUN 5 L (7-17) mg/dL Creatinine 0.4 L (0.7-1.2) mg/dL POC Glucose (70-105) Calcium 7.1 L (8.4-10.2) mg/dL
[2018-12-01] MEDS: SODIUM CHLORIDE FLUSH SYRINGE 10 ML IV SCH ×2 (11:45→22:43)
[2018-12-01] MEDS: PEPCID PO SCH ×2 (11:45→22:37)
[2018-12-01] MEDS: ROCEPHIN/NS 2 GM/100 ML 2 GM/100 ML BAG IV SCH (11:45)
--- NOTE | 2018-12-01 13:04 | Progress Note ---
Assessment and Plan 28 yo F with nonspecific LAD, fevers Plan: 1. NPO p MN tonight 2. plan for left axillary LN biopsy tomorrow, possible right - consent on chart 3. ID recs noted 4. Discussed plan with Dr. Armijo and Strong Notified patient of plan and will come back later to discuss with her mother at patient's request. Thank you, please call with questions. Subjective Date of service: 12/01/18 Narrative: Pt seen and examined. No complaints. +Fever Objective Vital Signs - 12hr 12/01/18 12/01/18 04:42 11:09 Temperature 98.3 F 98.2 F Pulse Rate 116 H 51 L Respiratory 18 18 Rate Blood Pressure 124/79 114/71 O2 Sat by Pulse 94 90 Oximetry - General physical appearance Narrative Exam: Gen: AAOx3. NAD CV: s1, S2+ resp: even and unlabored Ext; + left axillary LAD - Labs 12/01/18 05:15 12/01/18 05:15 Diabetes panel 12/01/18 Range/Units 05:15 Sodium 138 (137-145) mmol/L Potassium 3.6 (3.6-5.0) mmol/L Chloride 106.5 (98-107) mmol/L Carbon Dioxide 23 (22-30) mmol/L BUN 5 L (7-17) mg/dL Creatinine 0.4 L (0.7-1.2) mg/dL Glucose 98 (65-100) mg/dL Calcium 7.1 L (8.4-10.2) mg/dL Calcium panel 12/01/18 Range/Units 05:15 Calcium 7.1 L (8.4-10.2) mg/dL Pituitary panel 12/01/18 Range/Units 05:15 Sodium 138 (137-145) mmol/L Potassium 3.6 (3.6-5.0) mmol/L Chloride 106.5 (98-107) mmol/L Carbon Dioxide 23 (22-30) mmol/L BUN 5 L (7-17) mg/dL Creatinine 0.4 L (0.7-1.2) mg/dL Glucose 98 (65-100) mg/dL Calcium 7.1 L (8.4-10.2) mg/dL Adrenal panel 12/01/18 Range/Units 05:15 Sodium 138 (137-145) mmol/L Potassium 3.6 (3.6-5.0) mmol/L Chloride 106.5 (98-107) mmol/L Carbon Dioxide 23 (22-30) mmol/L BUN 5 L (7-17) mg/dL Creatinine 0.4 L (0.7-1.2) mg/dL Glucose 98 (65-100) mg/dL Calcium 7.1 L (8.4-10.2) mg/dL
[2018-12-01] MEDS: LOVENOX SUB-Q SCH (22:42)
[2018-12-02] MEDS: TYLENOL PO PRN (06:02)
[2018-12-02] MEDS: FLAGYL 500 MG/100 ML 500 MG/100 ML BAG IV SCH ×3 (06:03→22:10)
[2018-12-02] MEDS: HumaLOG SUB-Q SCH ×4 (07:30→22:11)
--- NOTE | 2018-12-02 08:00 | Hem/Onc Progress Note ---
Assessment and Plan B/l axilla lymphadenopathy. Etiology is unclear at this time. This could be a viral etiology or an immune cause. neoplasm is a differential. The patient had abnormal myelocyte; however, by the time I had evaluated her 10/22/2018 smear and flow cytometry were normal. This could have been a transient phenomenon. Abnormal LFTs. We will follow the trend. History of fever, being admitted for evaluation. 11/28 d/w dr vazquez - ID consult for fever CT CAP planned LN bx planned - once no fever 11/29 - pt had CT CAP - no LNs - ? hemangioma - liver - spleen d/w pts mother and father 12/01 edema - d/w dr masterson reg fluids fever - d/w dr Vazquez d/w Id team at this time the LN bx wll help 12/02 b/l axill LNs - neoplastic vs non neoplastic cause. fever edema - UA no proteinuria off IVFs h/o abn LFTs - Patient Problems (1) Lymphadenopathy Current Visit: Yes Status: Acute Subjective Date of service: 12/02/18 Principal diagnosis: b/l axillary LN Interval history: fever Objective - Constitutional Vitals: Last Vital Signs Temp 101.2 F H 12/02/18 05:46 Pulse 129 H 12/02/18 05:55 Resp 16 12/02/18 05:46 BP 114/68 12/02/18 05:55 Pulse Ox 97 12/02/18 05:55 Pain Intensity (0-10): denies any pain General appearance: no acute distress, other (facial edema) Performance status: 3-limited selfcare - EENT Eyes: EOM intact ENT: clear oral mucosa Lymph node exam: bilateral axillary, negative cervical - Neck Neck: normal ROM - Respiratory Respiratory effort: Positive: normal Respiratory: bilateral: CTA - Cardiovascular Heart Sounds: Present: S1 & S2 Extremity abnormal: edema - Gastrointestinal General gastrointestinal: Present: soft, non-tender Rectal Exam: deferred - Genitourinary Female genitourinary: Present: deferred - Integumentary Integumentary: warm - Musculoskeletal Musculoskeletal: strength equal bilaterally - Neurologic Neurologic: moves all extremities - Labs Lab Results: Laboratory Results - last 24 hr 12/01/18 12/01/18 12/01/18 08:11 11:13 16:46 POC Glucose 74 115 H 102 C-Reactive Protein 04/09/2012/02/18 12/02/18 22:21 00:31 07:44 POC Glucose 110 H 92 C-Reactive Protein 1.00 Medications & Allergies - Medications Allergies/Adverse Reactions: Allergies meloxicam Adverse Reaction (Verified 11/21/18 10:45) 'POSSIBLE'- HANDS SWELLING Home Medications: Home Medications Medication Instructions Recorded Confirmed Last Taken Type Ibuprofen 600 mg PO Q6H PRN 11/21/18 11/27/18 11/26/18 15:00 History predniSONE [Deltasone] 20 mg PO DAILY 11/21/18 11/27/18 11/26/18 15:00 History Active Medications: Generic Name Dose Route Start Last Admin Trade Name Freq PRN Reason Stop Dose Admin Acetaminophen 650 mg 11/27/18 18:15 12/02/18 06:02 Tylenol PO 650 mg Q4H PRN Administration Pain MILD(1-3)/Fever >100.5/REDDY Enoxaparin Sodium 40 mg 11/28/18 22:00 12/01/18 22:42 Lovenox SUB-Q 40 mg QDAY@2200 ANIYAH Administration Famotidine 20 mg 11/27/18 22:00 12/01/18 22:37 Pepcid PO 20 mg BID ANIYAH Administration Hydromorphone HCl 0.5 mg 11/27/18 11:08 Dilaudid IV Q3H PRN Pain , Severe (7-10) Ceftriaxone Sodium 2 gm in 100 mls @ 200 mls/hr 11/29/18 19:00 12/01/18 11:45 Rocephin/Ns 2 Gm/100 Ml IV 200 mls/hr Q24HR ANIYAH Administration Protocol Metronidazole 500 mg in 100 mls @ 100 mls/hr 11/29/18 22:00 12/02/18 06:03 Flagyl 500 Mg/100 Ml IV 100 mls/hr Q8HR ANIYAH Administration Protocol Ibuprofen 800 mg 11/29/18 18:02 11/30/18 23:23 Motrin PO 800 mg Q8H PRN Administration Non Cardiac Pain or Temp>100.5 Insulin Human Lispro 0 unit 11/28/18 11:30 12/01/18 22:31 Humalog SUB-Q Not Given ACHS ANIYAH Protocol Metoclopramide HCl 10 mg 11/27/18 18:15 Reglan IV Q6H PRN Nausea And Vomiting Ondansetron HCl 4 mg 11/27/18 18:15 11/30/18 09:45 Zofran IV 4 mg Q8H PRN Administration Nausea And Vomiting Oxycodone/Acetaminophen 1 tab 11/27/18 11:09 11/28/18 07:58 Percocet 5/325 PO 1 tab Q4H PRN Administration Pain, Moderate (4-6) Sodium Chloride 10 ml 11/27/18 22:00 12/01/18 22:43 Sodium Chloride Flush Syringe 10 Ml IV 10 ml BID ANIYAH Administration Sodium Chloride 10 ml 11/27/18 18:15 Sodium Chloride Flush Syringe 10 Ml IV PRN PRN LINE FLUSH
--- NOTE | 2018-12-02 09:23 | Progress Note ---
Assessment and Plan Cultures: Blood culture 11/27/2018 no growth Blood culture 11/29/2018 no growth Urine culture 11/27/2018: no growth Assessment: 28 y/o female with no medical history; admitted on 11/27/2017 for elective lymph node biopsy. She reported she was seen by her PCP 2 months before admission and noted to have bilateral axilary LNs. In the preop area, she was found to be tachycardic, lethargic, and febrile. Surgery was cancelled and patient admitted to hospitalist service for evaluation of fever. She reports 2-week history of on/off fever, chills, malaise: 1) FUO: continuing, noted fever 101.2,, associated with bilateral axillary LNs: unclear source. Broad DDx. acute mononucleosis (EBV/CMV) +/- HIV +/- cat scratch disease +/- autoimmune +/- malignancy. Blood culture 11/27/2018 no growth today. UA neg. CXR neg. HIV test a month ago neg per patient.HAV, HBV and HCV nonreactive. HIV nonreactive. s/p left axillary lymph node excisional biopsy today. Follow up histopathology, fungal, AFB and aerobic cultures. -CT Chest: Very small right pleural effusion Small left pleural effusion layers posteriorly with adjacent slight left lower lobe consolidation. This may be compressive atelectasis and/or pneumonia. No hilar mass or mediastinal adenopathy. -CT Abdomen and Pelvis: Nonspecific gallbladder wall slight hyperenhancement may reflect mild cholecystitis. No CT evidence of gallstones Splenic and liver lesions statistically most likely reflecting cysts and/or hemangiomas. Slight to moderate pelvic free fluid may be reactive. Consider also pelvic inflammatory disease 2) Elevated LFTs: unclear etiology ? acute mononucleosis (EBV/CMV) +/- HIV. Viral hepatitis panel all negative. Recommendations: - infectious work up negative thus far. Blood cultures negative. HIV and Hepatitis panel negative - f/u CEASAR, C3/C4, CRP - f/u histopathology and send separate sample for fungal, AFB and aerobic cultures - monitor off antibiotics. Fevers likely related to underlying process (autoimmune v/s malignancy) OK to discharge from ID standpoint. Continue follow up in Hematology clinic with Dr. Armijo, ID clinic follow up PRN if any concern for infection. [facility] M: [id number] O:[phone] Subjective Date of service: 12/02/18 Principal diagnosis: b/l ban LN Interval history: Patient seen and examined. Asleep, easily arousable. Denies pain or SOB. +fevers, + facial swelling. Objective - Exam Narrative Exam: General appearance: Asleep, easily arousable. +facial swelling Eyes: anicteric sclerae, moist conjunctivae; no lid-lag; PERRLA HENT: Atraumatic; oropharynx clear with moist mucous membranes and no mucosal ulcerations/no oral thrush; normal hard and soft palate. Normal external ears. Neck: Trachea midline; supple, no thyromegaly or lymphadenopathy Lungs: CTA, with normal respiratory effort and no intercostal retractions CV: RRR, no murmurs Abdomen: Soft, non-tender; no masses or hepatosplenomegaly Extremities: No peripheral edema. Pineda axillary small LNs Skin: Normal temperature, turgor and texture; no rash, ulcers or subcutaneous nodules Psych: Affect: flat. Neuro: alert and oriented x 3. Moving all extermities - Constitutional Vitals: Vital Signs Temp Pulse Resp BP Pulse Ox 101.2 F H 129 H 16 114/68 97 12/02/18 05:46 12/02/18 05:55 12/02/18 05:46 12/02/18 05:55 12/02/18 05:55 Temperature -Last 24 Hours Temperature 101.2 F Temperature 100.6 F Temperature 98.4 F Temperature 98.2 F - Labs CBC & Chem 7: 12/02/18 14:12 12/02/18 14:12 Labs: Abnormal lab results 12/01/18 12/01/18 Range/Units 11:13 22:21 POC Glucose 115 H 110 H (70-105)
[2018-12-02] MEDS ORDERED: NACL 0.9% 1000 ML 1,000 ML IV SCH (09:30)
[2018-12-02] MEDS: SODIUM CHLORIDE FLUSH SYRINGE 10 ML IV SCH ×2 (10:00→22:10)
[2018-12-02] MEDS: ROCEPHIN/NS 2 GM/100 ML 2 GM/100 ML BAG IV SCH (10:00)
[2018-12-02] MEDS: PEPCID PO SCH ×2 (10:00→22:09)
--- NOTE | 2018-12-02 10:51 | Anesthesia Consultation ---
Anesthesia Consult and Med Hx Date of service: 12/02/18 - Airway Anesthetic Teeth Evaluation: Good ROM Head & Neck: Adequate Mental/Hyoid Distance: Adequate Mallampati Class: Class II Intubation Access Assessment: Good - Pulmonary Exam CTA: Yes - Cardiac Exam Cardiac Exam: RRR - Pre-Operative Health Status ASA Pre-Surgery Classification: ASA3 Proposed Anesthetic Plan: General - Pulmonary Hx Smoking: No Hx Asthma: No Hx Respiratory Symptoms: No - Cardiovascular System Hx Hypertension: No Hx Heart Attack/AMI: No Hx Percutaneous Transluminal Coronary Angioplasty (PTCA): No Hx Cardia Arrhythmia: No - Central Nervous System Hx Seizures: No CVA: No Hx Back Pain: Yes Hx Psychiatric Problems: No - Gastrointestinal Hx Gastroesophageal Reflux Disease: No - Endocrine Hx Renal Disease: No Hx Liver Disease: No Hx Insulin Dependent Diabetes: No Hx Non-Insulin Dependent Diabetes: No Hx Thyroid Disease: No - Other Systems Hx Alcohol Use: No Hx Substance Use: No Hx Cancer: No Hx Obesity: No
--- NOTE | 2018-12-02 10:51 | Anesthesia Day of Surgery ---
Anesthesia Day of Surgery - Day of Surgery Patient Examined: Yes Patient H&P Reviewed: Yes Patient is NPO: Yes Beta Blockers: No Cardiac Clearance: No Pulmonary Clearance: No
[2018-12-02] MEDS ORDERED: DEMEROL IV PRN (10:52)
[2018-12-02] MEDS ORDERED: DILAUDID IV PRN (10:52)
[2018-12-02] MEDS ORDERED: NARCAN 0.4 MG/1 ML IV PRN (10:52)
[2018-12-02] MEDS ORDERED: ZOFRAN IV PRN (10:52)
[2018-12-02] MEDS ORDERED: SUBLIMAZE IV PRN (10:52)
[2018-12-02] MEDS ORDERED: XYLOCAINE 1% 20 mL ONE (11:09)
[2018-12-02] MEDS ORDERED: MARCAINE 0.25% INFILTRATI ONE ×3 (11:10→12:22)
[2018-12-02] MEDS ORDERED: XYLOCAINE MPF 2% ONE (11:47)
[2018-12-02] MEDS ORDERED: SUBLIMAZE ONE (11:47)
[2018-12-02] MEDS ORDERED: DIPRIVAN 10 MG/ML IV ONE (11:47)
[2018-12-02] MEDS ORDERED: DECADRON ONE (11:47)
[2018-12-02] MEDS ORDERED: ZOFRAN ONE (11:47)
[2018-12-02] MEDS ORDERED: VERSED ONE (11:59)
[2018-12-02] MEDS ORDERED: NACL 0.9% IR ONE (12:22)
[2018-12-02] MEDS ORDERED: XYLOCAINE 1% 20 mL INFILTRATI ONE (12:22)
--- NOTE | 2018-12-02 13:47 | Post Anesthesia Evaluation ---
- Post Anesthesia Evaluation Patient Participated: Yes Airway Patent: Yes Stable Respiratory Function: Yes Nausea/Vomiting: No Temp > 96.8F: Yes Pain Manageable: Yes Adequeate Hydration: Yes Anesthesia Complications: No
--- NOTE | 2018-12-02 14:11 | Post Operative Note ---
Date of procedure: 12/02/18 Pre-op diagnosis: lymphadenopathy Post-op diagnosis: same Findings: 3cm lymph node in left axilla Procedure: left axillary lymph node excisional biopsy Anesthesia: VILMAA, local Surgeon: ESTHER MEEKS Estimated blood loss: minimal Pathology: list (left axillary lymph node) Specimen disposition: to lab Condition: stable Disposition: PACU
[2018-12-02 14:35] LABS: Hematocrit 31.7 % (30.3-42.9); Hemoglobin 10.6 gm/dl (10.1-14.3); Mean Corpuscular HGB Conc 34 % (30-34); Mean Corpuscular Volume 92 fl (79-97); Platelet Count 182 K/mm3 (140-440); Red Blood Count 3.47 M/mm3 (3.65-5.03); Red Cell Distribution Width 15.2 % (13.2-15.2)
[2018-12-02 14:52] LABS: BUN/Creatinine Ratio 23; Blood Urea Nitrogen 7 mg/dL (7-17); Calcium 6.5 mg/dL (8.4-10.2); Hemolysis Index 109
--- NOTE | 2018-12-02 16:34 | Progress Note ---
Assessment and Plan /Bilateral Axillary Lymph Adenopathy: Biopsy r/o HD Lymphoma once afebrile, surgery consulted for bopsy /Sirs without organ dysfunction, poa, UA unremarkable, 2v CXR unremarkable, blood culture and urine culture pending: stopped abx, consulted ID /Suspected Lymphoma: get willson CT abd/pelvis/chest d/w Dr. Urbano, ID to look for infection and staging. Needs outpt PET scan also. /Hyperglycemia followed by hypoglycemia this morning, BG 63==>A1c 6.0: cont regular diet, on ssi for the hypoglycemia /GI/DVt ppx Brief History Patient is a 28 yo woman without chronic medical problems who was referred by Dr. Ashlee Cortes to Dr. Armijo for B symptoms. Dr. Armijo found cervical LAD and referred to Dr. Vazquez for excisional biopsy. Imaging of both axillary regions demonstrated approximately 6 lymph nodes in each axilla. The smallest nodes were approximately one centimeters in size. The 2 largest lymph nodes on the right measure 2.5 cm. On the left the 2 largest measure 2.8 and 2.3 cm respectively. All of the enlarged lymph nodes appear to be abnormal with markedly thickened cortices but no focal mass and no significant lobulation. Impression: Nonspecific adenopathy. Patient was scheduled for outpatient biopsy but she spiked a fever and biopsy was canceled to rule out sepsis and she was directly admitted 11/27/18. * CT abd/pelvis with iv contrast IMPRESSION: Nonspecific gallbladder wall slight hyperenhancement may reflect mild cholecystitis. No CT evidence of gallstones Splenic and liver lesions statistically most likely reflecting cysts and/or hemangiomas. Given history of fever, inflammatory or infectious etiologies not entirely excluded Slight to moderate pelvic free fluid may be reactive. Consider also pelvic inflammatory disease * CT chest with iv contrast IMPRESSION: Very small right pleural effusion Small left pleural effusion layers posteriorly with adjacent slight left lower lobe consolidation. This may be compressive atelectasis and/or pneumonia. NO hilar mass or mediastinal adenopathy. Hospitalist Physical Gen: thin frail, NAD, Awake, lethargic, Orientated HEENT: NCAT, EOMI, PERRL, OP Clear Neck: supple, +adenopathy, no thyromegaly, no JVD CVS/Heart: RRR, normal S1S2, pulses present bilaterally Chest/Lungs: CTA B, Symmetrical chest expansion, good air entry bilaterally GI/Abdomen: soft, NTND, good bowel sounds, no guarding or rebound /Bladder: no suprapubic tenderness, no CVA or paraspinal tenderness Extermity/Skin: no c/c, gen. swelling, no obvious rash MSK: FROM x 4 Neuro: CN 2-12 grossly intact, no new focal deficits Psych: calm Subjective Date of service: 12/09/18 Principal diagnosis: b/l ban LN Interval history: patient seen and examined s/p axillary biopsy today, Spiked fever this am poor appetite Objective - Constitutional Vitals: Vital Signs - 12hr 12/02/18 12/02/18 12/02/18 05:46 05:55 09:45 Temperature 101.2 F H 99.1 F Pulse Rate 150 H 129 H 119 H Respiratory 16 22 Rate Blood Pressure 87/68 114/68 115/71 O2 Sat by Pulse 99 97 100 Oximetry 12/02/18 12/02/18 12/02/18 13:02 13:05 13:10 Temperature 98.2 F Pulse Rate 96 H 103 H 101 H Respiratory 21 18 19 Rate Blood Pressure 116/80 121/84 120/87 O2 Sat by Pulse 100 93 100 Oximetry 12/02/18 12/02/18 12/02/18 13:15 13:20 13:25 Temperature Pulse Rate 96 H 92 H 96 H Respiratory 16 15 15 Rate Blood Pressure 120/82 124/80 122/83 O2 Sat by Pulse 96 99 99 Oximetry 12/02/18 12/02/18 13:30 14:53 Temperature 98.4 F Pulse Rate 92 H 97 H Respiratory 14 16 Rate Blood Pressure 121/82 125/85 O2 Sat by Pulse 99 96 Oximetry - Labs CBC & Chem 7: 12/02/18 14:12 12/02/18 14:12 Labs: Abnormal lab results 12/01/18 12/02/18 12/02/18 Range/Units 22:21 14:12 14:12 RBC 3.47 L (3.65-5.03) M/mm3 Sodium 133 L (137-145) mmol/L Creatinine 0.3 L (0.7-1.2) mg/dL Glucose 105 H (65-100) mg/dL POC Glucose 110 H (70-105) Calcium 6.5 L (8.4-10.2) mg/dL
[2018-12-02] MEDS: LOVENOX SUB-Q SCH (22:11)
[2018-12-03] MEDS: FLAGYL 500 MG/100 ML 500 MG/100 ML BAG IV SCH ×2 (07:35→16:24)
--- NOTE | 2018-12-03 07:42 | Hem/Onc Progress Note ---
Assessment and Plan B/l axilla lymphadenopathy. Etiology is unclear at this time. This could be a viral etiology or an immune cause. neoplasm is a differential. The patient had abnormal myelocyte; however, by the time I had evaluated her 10/22/2018 smear and flow cytometry were normal. This could have been a transient phenomenon. Abnormal LFTs. We will follow the trend. History of fever, being admitted for evaluation. 11/28 d/w dr vazquez - ID consult for fever CT CAP planned LN bx planned - once no fever 11/29 - pt had CT CAP - no LNs - ? hemangioma - liver - spleen d/w pts mother and father 12/01 edema - d/w dr masterson reg fluids fever - d/w dr Vazquez d/w Id team at this time the LN bx wll help 12/02 b/l axill LNs - neoplastic vs non neoplastic cause. fever edema - UA no proteinuria off IVFs h/o abn LFTs 12/03/2018 s/p LNs biopsy OP follow up an option - Patient Problems (1) Lymphadenopathy Current Visit: Yes Status: Acute Subjective Date of service: 12/03/18 Principal diagnosis: LNs cause unclear Interval history: s/p LN bx Objective - Constitutional Vitals: Last Vital Signs Temp 98.9 F 12/03/18 04:47 Pulse 97 H 12/03/18 04:47 Resp 16 12/03/18 04:47 BP 113/76 12/03/18 04:47 Pulse Ox 99 12/03/18 04:47 Pain Intensity (0-10): denies any pain General appearance: no acute distress Performance status: 2- selfcare, ambulatory - EENT Eyes: EOM intact ENT: clear oral mucosa Lymph node exam: bilateral supraclavicular (s/p sx) - Neck Neck: normal ROM - Respiratory Respiratory effort: Positive: normal Respiratory: bilateral: CTA - Cardiovascular Heart Sounds: Present: S1 & S2 Extremities: No edema - Gastrointestinal General gastrointestinal: Present: soft, non-tender Rectal Exam: deferred - Genitourinary Female genitourinary: Present: deferred - Integumentary Integumentary: warm - Musculoskeletal Musculoskeletal: strength equal bilaterally - Neurologic Neurologic: moves all extremities - Labs Lab Results: Laboratory Results - last 24 hr 12/02/18 12/02/18 12/02/18 07:44 14:12 14:12 WBC 6.4 RBC 3.47 L Hgb 10.6 Hct 31.7 MCV 92 MCH 31 MCHC 34 RDW 15.2 Plt Count 182 Sodium 133 L Potassium 4.4 D Chloride 103.1 Carbon Dioxide 24 Anion Gap 10 BUN 7 Creatinine 0.3 L Estimated GFR > 60 BUN/Creatinine Ratio 23 Glucose 105 H POC Glucose 92 Calcium 6.5 L Influenza A (Rapid) Influenza B (Rapid) 12/02/18 12/02/18 12/02/18 16:20 16:54 21:25 WBC RBC Hgb Hct MCV MCH MCHC RDW Plt Count Sodium Potassium Chloride Carbon Dioxide Anion Gap BUN Creatinine Estimated GFR BUN/Creatinine Ratio Glucose POC Glucose 147 H 143 H Calcium Influenza A (Rapid) Negative Influenza B (Rapid) Negative Medications & Allergies - Medications Allergies/Adverse Reactions: Allergies meloxicam Adverse Reaction (Verified 11/21/18 10:45) 'POSSIBLE'- HANDS SWELLING Home Medications: Home Medications Medication Instructions Recorded Confirmed Last Taken Type Ibuprofen 600 mg PO Q6H PRN 11/21/18 11/27/18 11/26/18 15:00 History Active Medications: Generic Name Dose Route Start Last Admin Trade Name Freq PRN Reason Stop Dose Admin Acetaminophen 650 mg 11/27/18 18:15 12/02/18 06:02 Tylenol PO 650 mg Q4H PRN Administration Pain MILD(1-3)/Fever >100.5/REDDY Enoxaparin Sodium 40 mg 11/28/18 22:00 12/02/18 22:11 Lovenox SUB-Q Not Given QDAY@2200 ANIYAH Famotidine 20 mg 11/27/18 22:00 12/02/18 22:09 Pepcid PO 20 mg BID ANIYAH Administration Hydromorphone HCl 0.5 mg 11/27/18 11:08 Dilaudid IV Q3H PRN Pain , Severe (7-10) Ceftriaxone Sodium 2 gm in 100 mls @ 200 mls/hr 11/29/18 19:00 12/02/18 10:00 Rocephin/Ns 2 Gm/100 Ml IV Not Given Q24HR ANIYAH Protocol Metronidazole 500 mg in 100 mls @ 100 mls/hr 11/29/18 22:00 12/03/18 07:35 Flagyl 500 Mg/100 Ml IV 100 mls/hr Q8HR ANIYAH Administration Protocol Ibuprofen 800 mg 11/29/18 18:02 11/30/18 23:23 Motrin PO 800 mg Q8H PRN Administration Non Cardiac Pain or Temp>100.5 Insulin Human Lispro 0 unit 11/28/18 11:30 12/02/18 22:11 Humalog SUB-Q Not Given ACHS [facility] Protocol Metoclopramide HCl 10 mg 11/27/18 18:15 Reglan IV Q6H PRN Nausea And Vomiting Naloxone HCl 0.1 mg 12/02/18 10:52 Narcan 0.4 Mg/1 Ml IV Q2MIN PRN Res Rate </= 8 or 02 SAT < 92% Ondansetron HCl 4 mg 11/27/18 18:15 11/30/18 09:45 Zofran IV 4 mg Q8H PRN Administration Nausea And Vomiting Oxycodone/Acetaminophen 1 tab 11/27/18 11:09 11/28/18 07:58 Percocet 5/325 PO 1 tab Q4H PRN Administration Pain, Moderate (4-6) Sodium Chloride 10 ml 11/27/18 22:00 12/02/18 22:10 Sodium Chloride Flush Syringe 10 Ml IV 10 ml BID ANIYAH Administration Sodium Chloride 10 ml 11/27/18 18:15 Sodium Chloride Flush Syringe 10 Ml IV PRN PRN LINE FLUSH
[2018-12-03] MEDS: HumaLOG SUB-Q SCH ×2 (08:37→13:00)
[2018-12-03] MEDS: PEPCID PO SCH (10:23)
[2018-12-03] MEDS: SODIUM CHLORIDE FLUSH SYRINGE 10 ML IV SCH (10:23)
[2018-12-03] MEDS: ROCEPHIN/NS 2 GM/100 ML 2 GM/100 ML BAG IV SCH (10:23)
--- NOTE | 2018-12-03 10:24 | Operative Report ---
PREOPERATIVE DIAGNOSIS: Nonspecific lymphadenopathy. POSTOPERATIVE DIAGNOSIS: Nonspecific lymphadenopathy. FINDINGS: A 3 cm lymph node in left axilla. PROCEDURE: Left axillary lymph node excisional biopsy. ANESTHESIA: General endotracheal anesthesia, local. SURGEON: Noemi Vazquez DO ESTIMATED BLOOD LOSS: Minimal. PATHOLOGY: Left axillary lymph node. SPECIMEN DISPOSITION: To lab. CONDITION AND DISPOSITION OF THE PATIENT: Stable to PACU. HISTORY OF PRESENT ILLNESS AND INDICATION: The patient is a 28-year-old female who was referred to the office by Hematology/Oncology for evaluation of lymphadenopathy in bilateral axilla. The patient was exhibiting symptoms of fatigue, lethargy and joint pains that were associated with the lymphadenopathy and there was concern for pathology. The patient was set up as an outpatient for lymph node biopsy after bilateral axillary ultrasound was performed showing enlarged lymph nodes; however, on the day of surgery, the patient presented febrile and tachycardic and therefore was admitted to the hospital. The patient has undergone a workup for infectious causes of her fever and has been cleared by Infectious Disease to pursue lymph node biopsy. All risks and benefits were once again reviewed with the patient. Consent was verified on the chart. PROCEDURE IN DETAIL: The patient was identified in preoperative area and surgical site marked. She was taken back to the operating room and placed on the operating table in supine position. After anesthesia was induced, the left arm was abducted and the left axilla was prepped and draped in the usual sterile fashion and a timeout performed. The lymph node was easily palpable on physical examination. A 3 cm transverse incision was made below the hairline using a #15 blade after local anesthetic was infiltrated into the skin and subcutaneous tissue. Dissection was carried down through the skin and subcutaneous tissue using Bovie electrocautery with hemostasis achieved along the way. The fascia was encountered and incised using electrocautery and blunt dissection was performed in order to find the axillary fat. Great care was taken to identify any nerves in the wound bed and to preserve them. The axillary fat pad was found and grasped with a hemostat. Immediately, a lymph node was identified and grasped with a forceps. It was circumferentially dissected from the surrounding tissue using blunt dissection with a hemostat as well as electrocautery when safe. Once the lymph node was circumferentially dissected, it was transected from the underlying areola adipose tissue and inspected. The lymph node was 3 cm and oblong in shape. It was firm. The specimen was passed off the table and sent to pathology fresh as requested. The wound was checked for hemostasis, which was carefully ensured using a combination of pressure and electrocautery where safe. The wound was irrigated with saline and hemostasis ensured. The deep dermal layer was then closed with interrupted 3-0 Vicryl sutures. The skin was closed with 4-0 Monocryl subcuticular running stitch and skin glue. At the end of the case, all sponge, instrument, sharp counts were correct x 2. The patient was awoken from anesthesia, extubated, and taken to PACU in stable condition. JOB# [id number] ROBERTA/BECKY NICHOLE
--- NOTE | 2018-12-03 13:04 | Progress Note ---
Assessment and Plan 28 yo F s/p left axillary excisional lymph node biopsy, POD 1 Plan; 1. follow up path 2. afebrile x 24 hours, ok to dc home from surgery standpoint 3. prn PO pain control Will s/o. Thank you, please call with questions Subjective Date of service: 12/03/18 Narrative: Pt seen and examined. No overnight events. c/o mild soreness at left axillary incision site. No f/c x 24 hours Objective Vital Signs - 12hr 12/03/18 04:47 Temperature 98.9 F Pulse Rate 97 H Respiratory 16 Rate Blood Pressure 113/76 O2 Sat by Pulse 99 Oximetry - General physical appearance Narrative Exam: Gen: AAOx3. NAD CV: S1, S2+ Resp: even and unlabored Ext; L axillary incision c/d/i - Labs 12/02/18 14:12 12/02/18 14:12 Diabetes panel 12/02/18 Range/Units 14:12 Sodium 133 L (137-145) mmol/L Potassium 4.4 D (3.6-5.0) mmol/L Chloride 103.1 (98-107) mmol/L Carbon Dioxide 24 (22-30) mmol/L BUN 7 (7-17) mg/dL Creatinine 0.3 L (0.7-1.2) mg/dL Glucose 105 H (65-100) mg/dL Calcium 6.5 L (8.4-10.2) mg/dL Calcium panel 12/02/18 Range/Units 14:12 Calcium 6.5 L (8.4-10.2) mg/dL Pituitary panel 12/02/18 Range/Units 14:12 Sodium 133 L (137-145) mmol/L Potassium 4.4 D (3.6-5.0) mmol/L Chloride 103.1 (98-107) mmol/L Carbon Dioxide 24 (22-30) mmol/L BUN 7 (7-17) mg/dL Creatinine 0.3 L (0.7-1.2) mg/dL Glucose 105 H (65-100) mg/dL Calcium 6.5 L (8.4-10.2) mg/dL Adrenal panel 12/02/18 Range/Units 14:12 Sodium 133 L (137-145) mmol/L Potassium 4.4 D (3.6-5.0) mmol/L Chloride 103.1 (98-107) mmol/L Carbon Dioxide 24 (22-30) mmol/L BUN 7 (7-17) mg/dL Creatinine 0.3 L (0.7-1.2) mg/dL Glucose 105 H (65-100) mg/dL Calcium 6.5 L (8.4-10.2) mg/dL
[2018-12-03 14:08] VITALS: BP 131/88
--- NOTE | 2018-12-03 16:40 | Discharge Summary ---
Providers - Providers Date of Admission: 11/27/18 10:35 Date of discharge: 12/03/18 Attending physician: SAMARIA WILKINS 11/27/18 13:06 Consult to Physician [CONS] Routine Comment: Consulting Provider: JENNI ARMIJO Physician Instructions: Reason For Exam: fever, lymphadenopathy, known to you 11/27/18 16:00 Consult to Physician [CONS] Routine Comment: Consulting Provider: ESTHER MEEKS Physician Instructions: SURGICAL CONSULT. Reason For Exam: MARICEL. AXILLARY AND RT, CERVICAL LYMPH NODES, 11/28/18 14:29 Consult to Physician [CONS] Routine Comment: Consulting Provider: BRENDEN GOMEZ Physician Instructions: Reason For Exam: fever of unknown etiology Primary care physician: CARY CABRAL Hospitalization Reason for admission: fever Hospital course: Brief History Patient is a 28 yo woman without chronic medical problems who was referred by Dr. Ashlee Cortes to Dr. Armijo for B symptoms. Dr. Armijo found cervical LAD and referred to Dr. Meeks for excisional biopsy. Imaging of both axillary regions demonstrated approximately 6 lymph nodes in each axilla. The smallest nodes were approximately one centimeters in size. The 2 largest lymph nodes on the right measure 2.5 cm. On the left the 2 largest measure 2.8 and 2.3 cm respectively. All of the enlarged lymph nodes appear to be abnormal with markedly thickened cortices but no focal mass and no significant lobulation. Impression: Nonspecific adenopathy. Patient was scheduled for outpatient biopsy but she spiked a fever and biopsy was canceled to rule out sepsis and she was directly admitted 11/27/18. * CT abd/pelvis with iv contrast IMPRESSION: Nonspecific gallbladder wall slight hyperenhancement may reflect mild cholecystitis. No CT evidence of gallstones Splenic and liver lesions statistically most likely reflecting cysts and/or hemangiomas. Given history of fever, inflammatory or infectious etiologies not entirely excluded Slight to moderate pelvic free fluid may be reactive. Consider also pelvic inflammatory disease * CT chest with iv contrast IMPRESSION: Very small right pleural effusion Small left pleural effusion layers posteriorly with adjacent slight left lower lobe consolidation. This may be compressive atelectasis and/or pneumonia. NO hilar mass or mediastinal adenopathy. Discharge diagnosis: /Bilateral Axillary Lymph Adenopathy: s/p Biopsy for possible HD Lymphoma once afebrile, surgery consulted for bopsy, will follow result outpt with Dr Armijo /Sirs without organ dysfunction, poa, UA unremarkable, 2v CXR unremarkable, blood culture and urine culture negative: stopped abx, consulted ID. Fevers likely related to underlying process (autoimmune v/s malignancy) OK to discharge from ID standpoint. Continue follow up in Hematology clinic with Dr. Armijo, ID clinic follow up PRN if any concern for infection. /Suspected Lymphoma: s/p CT abd/pelvis/chest d/w Dr. Urbano, ID to look for infection and staging. Needs outpt PET scan also. will cont outpt followup with Dr Armijo /Hyperglycemia followed by hypoglycemia this morning, BG 63==>A1c 6.0: cont regular diet, Placed on ssi for the hyperglycemia /GI/DVt ppx Hospitalist Physical Gen: thin frail, NAD, Awake, lethargic, Orientated HEENT: NCAT, EOMI, PERRL, OP Clear Neck: supple, +adenopathy, no thyromegaly, no JVD CVS/Heart: RRR, normal S1S2, pulses present bilaterally Chest/Lungs: CTA B, Symmetrical chest expansion, good air entry bilaterally GI/Abdomen: soft, NTND, good bowel sounds, no guarding or rebound /Bladder: no suprapubic tenderness, no CVA or paraspinal tenderness Extermity/Skin: no c/c, gen. swelling, no obvious rash MSK: FROM x 4 Neuro: CN 2-12 grossly intact, no new focal deficits Psych: calm Disposition: DC-01 TO HOME OR SELFCARE Time spent for discharge: 34 minutes Core Measure Documentation - Palliative Care Palliative Care/ Comfort Measures: Not Applicable - Core Measures Any of the following diagnoses?: none Exam - Constitutional Vitals: Temp Pulse Resp BP Pulse Ox 97.6 F 112 H 18 131/88 98 12/03/18 12:38 12/03/18 12:38 12/03/18 12:38 12/03/18 12:38 12/03/18 12:38 Plan Activity: advance as tolerated Weight Bearing Status: Weight Bear as Tolerated Diet: regular Follow up with: CARY CABRAL MD [Primary Care Provider] - 7 Days JENNI ARMIJO MD [Staff Physician] - 7 Days
[2018-12-03 21:43] LABS: ANA Screen, IFA Positive (Negative)
== END 2018-12-03 18:45 | disposition home or self-care (01) | DRG 802 ==
LOC: OR 07:28 → 3A 10:35
PROVIDERS: ADMIT Internal Medicine; ATTEND Internal Medicine
PROC: 07B60ZX Excision of Left Axillary Lymphatic, Open Approach, Diagnostic (ICD-10-PCS; principal; 2018-12-02)
DX: R59.1 Generalized enlarged lymph nodes (principal); E43 Unspecified severe protein-calorie malnutrition; E87.1 Hypo-osmolality and hyponatremia; R65.10 Systemic inflammatory response syndrome (SIRS) of non-infectious origin without acute organ dysfunction; R73.9 Hyperglycemia, unspecified; R50.9 Fever, unspecified; R74.0 Nonspecific elevation of levels of transaminase and lactic acid dehydrogenase [LDH]; Z82.49 Family history of ischemic heart disease and other diseases of the circulatory system; Z79.899 Other long term (current) drug therapy
CPT/HCPCS: 36415; 71046; 71260; 74177; 80048; 80053; 80074; 81001; 81025; 82962; 83036; 84443; 85007; 85025; 85027; 85652; 86038; 86140; 86665; 87040; 87076; 87086; 87102; 87116; 87186; 87400; 87806; 88184; 88185; 88305; 88312; 88342; G0378; 87502; J0690; J0696; J1100; J1650; J2250; J2405; J2543; J2704; J3010; J3370; J7030; J7042; J7050; J7120; J7512; Q9967